=== PATIENT | female | born 1945 | race Caucasian/White ===

== ENCOUNTER → 2019-06-11 12:38 | Outpatient (CLI) | payer MEDICARE, SELFPAY ==
--- NOTE | ~2019-06-11 | MM_ITS ---
EXAMINATION: MM screening kay BI w christy HISTORY: Screening mammogram TECHNIQUE: Craniocaudal and mediolateral oblique 3-D tomosynthesis images were obtained and synthetic 2-D images were generated. CAD analysis was submitted and interpreted. COMPARISON: 06/12/2016, 12/28/2014, 12/26/2013 by lateral digital screening mammogram examinations BREAST PARENCHYMAL COMPOSITION: There are scattered areas of fibroglandular density. FINDINGS: There is no evidence of suspicious mass, calcification, or architectural distortion to sugg est malignancy in either breast. There has been no suspicious interval change. IMPRESSION: 1. No mammographic evidence of malignancy. 2. Recommend routine screening mammography in one year. BI-RADS Category 1: Negative Reviewed, dictated and finalized at location A. IT REPORTER
== END ==
PROVIDERS: PCP Internal Medicine; Visit Provider Internal Medicine
DX: Z12.31 Encounter for screening mammogram for malignant neoplasm of breast (principal)
CPT/HCPCS: 77063; 77067

== ENCOUNTER 2020-06-25 09:11 | Outpatient (CLI) | payer MEDICARE, SELFPAY ==
--- NOTE | ~2020-06-25 | CT_ITS ---
EXAMINATION: CT abdomen pelvis wo/w con EXAM DATE: 06/25/2020 10:09 INDICATION: R31.9 - Hematuria, unspecified. TECHNIQUE: Spiral CT of the abdomen and pelvis was performed without contrast. The patient was then injected with small bolus intravenous Omnipaque 350, followed by delay of approximately 10 minutes to allow collecting system to opacify. A post contrast scan abdomen and pelvis was performed during inj ection of remaining contrast. A total of 130 cc intravenous contrast was administered. The dose-river th product (DLP) for this examination was 782.52 mGy-cm. The exposure was tailored according to marisa ent size (auto mA exposure control), and iterative reconstruction (ASIR) was used as additional dose reduction technique. Comparison is made to prior examination from 12/22/2016. FINDINGS: There is no hydronephrosis or nephrolithiasis. Several renal cysts in each kidney, largest on the right measuring 5 cm. The kidneys enhance symmetrically. There are no suspicious renal lesi ons. The calyces and opacified portions of ureters are unremarkable, without filling defects or foca l suspicious strictures. The bladder is unremarkable. The uterus is not identified and has likely b een surgically resected. No change in the 2 cm left ovarian cystic lesion, benign finding. The liver, spleen, adrenal glands and pancreas are unremarkable. Gallbladder is unremarkable. No bi liary obstruction. There is no retroperitoneal or pelvic lymphadenopathy. There is mild scattered arteriosclerotic disease. The appendix is not positively visualized. There is no pericecal inflammatory change to suggest appe ndicitis. The stomach and small bowel are unremarkable. There is expected amount of colonic stool. No free intraperitoneal gas. The heart is normal in size. There are no pericardial or pleural e ffusions. The lung bases are unremarkable. Sclerotic 1.3 cm focus in L4 unchanged, with thickened t rabeculation. Probably hemangioma. No suspicious bone lesions. IMPRESSION: Renal, ovarian cysts. No suspicious genitourinary findings. Reviewed, dictated and finalized at location A.
[2020-06-25 09:47] LABS: Estimated Glomerular Filt Rate 48
== END 2020-06-25 09:12 | disposition home or self-care (01) ==
PROVIDERS: PCP Internal Medicine; Visit Provider Internal Medicine
DX: R31.9 Hematuria, unspecified (principal); N28.1 Cyst of kidney, acquired
CPT/HCPCS: 74178; Q9967

== ENCOUNTER → 2020-07-19 02:50 | Outpatient (CLI) | payer MEDICARE, SELFPAY ==
[2020-07-19 19:42] LABS: SARS-CoV-2 RNA PCR Negative
== END ==
PROVIDERS: PCP Internal Medicine; Visit Provider Urology
DX: Z01.812 Encounter for preprocedural laboratory examination (principal); Z20.822 Contact with and (suspected) exposure to COVID-19
CPT/HCPCS: C9803; U0003; U0005

== ENCOUNTER 2020-07-20 13:38 | Outpatient (CLI) | payer MEDICARE, SELFPAY ==
--- NOTE | 2020-07-20 13:45 | ECG_ITS ---
Measurements Intervals [place] Rate: 80 P: 27 [place]: 148 QRS: 23 QRSD: 78 T: 36 QT: 346 QTc: 401 Interpretive Statements SINUS RHYTHM BORDERLINE R WAVE PROGRESSION, ANTERIOR LEADS BORDERLINE T WAVE ABNORMALITY- ANT/INF LEADS BASELINE ARTIFACT- I, II, III, AVR, AVL, AVF, V1-V6 BORDERLINE ECG Electronically Signed On 07-20-2020 14:19:59 CDT by Claudy Avendano D.O.
[2020-07-20 14:25] LABS: Hematocrit 38.6 % (37.0-47.0); Hemoglobin 12.2 g/dL (12.0-15.0)
[2020-07-20 14:33] LABS: Anion Gap 3 mmol/L (8-16); Blood Urea Nitrogen 20 mg/dL (7-17); Carbon Dioxide 30 mmol/L (22-30); Chloride 108 mmol/L (98-107); Estimated Glomerular Filt Rate > 60; Glucose 85 mg/dL (65-105); Potassium 4.3 mmol/L (3.4-5.0); Sodium 141 mmol/L (137-145)
[2020-07-20 14:53] LABS: INR 0.9; Prothrombin Time 12.7 Seconds (11.1-14.7)
[2020-07-20 14:54] LABS: Partial Thromboplastin Time 26.3 SECONDS (22.3-36.8)
== END 2020-07-20 13:39 | disposition home or self-care (01) ==
LOC: ANHSURGERY 13:45
PROVIDERS: Anesthesiology; PCP Internal Medicine; Visit Provider Urology
DX: Z01.818 Encounter for other preprocedural examination (principal); N18.30 Chronic kidney disease, stage 3 unspecified; E78.00 Pure hypercholesterolemia, unspecified; D64.9 Anemia, unspecified; Z51.81 Encounter for therapeutic drug level monitoring; Z79.899 Other long term (current) drug therapy
CPT/HCPCS: 36415; 80048; 85014; 85018; 85610; 85730; 93005

== ENCOUNTER → 2020-07-21 12:46 | Outpatient (CLI) | payer MEDICARE, SELFPAY ==
--- NOTE | ~2020-07-21 | MM_ITS ---
EXAMINATION: MM screening kay BI w christy HISTORY: Screening TECHNIQUE: Craniocaudal and mediolateral oblique 3-D tomosynthesis images were obtained and synthetic 2-D images were generated. CAD analysis was submitted and interpreted. COMPARISON: Comparison to multiple prior studies sequentially, with oldest reviewed study dated 11/23. BREAST PARENCHYMAL COMPOSITION: There are scattered areas of fibroglandular density. FINDINGS: There is no evidence of suspicious mass, calcification, or architectural distortion to sugg est malignancy in either breast. There has been no suspicious interval change. IMPRESSION: 1. No mammographic evidence of malignancy. 2. Recommend routine screening mammography in one year. BI-RADS Category 1: Negative Reviewed, dictated and finalized at location A.
== END ==
PROVIDERS: PCP Internal Medicine; Visit Provider Internal Medicine
DX: Z12.31 Encounter for screening mammogram for malignant neoplasm of breast (principal)
CPT/HCPCS: 77063; 77067

== ENCOUNTER 2020-07-22 01:22 | Day surgery (SDC) | payer MEDICARE, SELFPAY ==
[2020-07-16 11:54] VITALS: BMI 27.6
--- NOTE | ~2020-07-22 | XR_ITS ---
EXAMINATION: XR retrograde pyelogram BI EXAM DATE: 07/22/2020 13:49 INDICATION: Bilateral retrograde pyelogram. Hematuria and low abdominal pain. TECHNIQUE: Fluoroscopy used during XR retrograde pyelogram BI performed by Dr. Eleazar Smith MD . Total fluoroscopic time of 24 seconds. The DAP for this procedure was 420 radcm2. A total of 115 images obtained for the exam. Cine run(s) available for review. Correlation was made with CT abdom en pelvis 06/25/2020. FINDINGS: Music Engineer demonstrates cholecystectomy clips. Left ureter was cannulated 1st and injected, was unremarkable. Right ureter was then cannulated and also injected, also unremarkable. No ureteral stri ctures or caliectasis. No filling defects. Correlate with procedure note. IMPRESSION: Unremarkable bilateral retrograde pyelograms. Reviewed, dictated and finalized at location A.
--- NOTE | 2020-07-22 06:58 | WPDHPUPDATE1 ---
History and Physical Update Update Date/Time: 07/22/20 06:58 History and Physical has been reviewed, including an updated exam of the patient. There are NO changes in the patient's condition. Risks, benefits, and alternatives have been discussed and questions answered. Patient agrees to proceed with procedure.
[2020-07-22 12:23] VITALS: BP 107/62; PULSE 81; RESP 16; TEMP 37.1; O2SAT 100
[2020-07-22] MEDS: LACTATED RINGERS 1,000 ML 30 ML IV CONT (12:41)
--- NOTE | 2020-07-22 13:11 | WPDANESEPPF ---
Anes - Initial Pre Proc Eval Procedure: Operation Date: 07/22/20 12:30 Proposed Procedures p Cystoscopy, Bladder Biopsy, Bilateral Retrograde Pyelogram - Eleazar Smith MD Date/Time: 07/22/20 13:11 Surgeon: Eleazar Smith MD Pre Op Diagnosis: gross hematuria Patient Data Age: 74 Gender: F Height: 5 ft Weight: 63.9 kg Last Vital Signs Temp 37.1 C 07/22/20 12:23 Pulse 81 07/22/20 12:23 Resp 16 07/22/20 12:23 BP 107/62 07/22/20 12:23 Pulse Ox 100 07/22/20 12:23 Allergies Allergy/AdvReac Type Severity Reaction Status Date / Time latex Allergy Unknown Hives Verified 07/22/20 11:45 Sulfa (Sulfonamide Allergy Unknown Hives Verified 07/22/20 11:45 Antibiotics) NSAIDS (Non-Steroidal AdvReac Unknown kidney Verified 07/22/20 11:45 Anti-Inflamma Home Medications Medication Instructions Recorded Confirmed Type walker #1 ea 04/07/20 06/03/20 Rx acetaminophen [Tylenol Extra 500 mg PO QID PRN 07/16/20 07/22/20 History Strength] calcium carbonate-vitamin D3 1 tablet PO DAILY 07/16/20 07/22/20 History [Calcium 500 + D (D3)] famotidine 40 mg PO QAM 07/16/20 07/22/20 History levothyroxine 112 mcg PO QAM 07/16/20 07/22/20 History kcebxvlhcobv-Db-hzxj-minerals 1 tablet PO MONTHLY 07/16/20 07/22/20 History [Women's Multiple Vitamins] sertraline 200 mg PO BID 07/16/20 07/22/20 History simvastatin 40 mg PO QAM 07/16/20 07/22/20 History Patient hx anesthesia problems: none Family hx anesthesia problems: none PMFSH Past Medical History Medical History COVID-19 Degenerative joint disease of knee Hypothyroidism (acquired) Impacted cerumen Obstructive sleep apnea Presbycusis Unsteady gait when walking Surgical History Surgical History History of total right knee replacement Status post total right knee replacement Family History Family History Mother Family history of diabetes mellitus in first degree relative Family history of coronary artery disease Diabetes mellitus Father Family history of lung cancer Other Asthma Family history of cardiovascular disease Family history of gastrointestinal disorder Family history of thyroid disease Social History Social History Smoking status: Never smoker Second hand tobacco smoke exposure: No Alcohol intake: current Drinks per week: 2 Substance use: never Substance use type: does not use Living arrangements: alone Spiritual care concerns: No Anes - Eval Final PreProcedure Day of Procedure 07/22/20 13:11 Patient weight: overweight Heart: regular rate and rhythm Lungs: clear to auscultation Airway: Mallampati scale class II Neurological: alert and oriented Last oral intake: >/= 8 hours ASA classification: III Emergent: no Anesthetic plan: proceed Anesthesia type and monitoring: general GIVS and standard monitoring Informed Consent: The patient's anesthetic plan and its attendant risks and benefits were discussed with the patient/family/POA. Questions were solicited and answers provided to the satisfaction of the patient/family/POA.
[2020-07-22] MEDS: ceFAZolin 2 GM/D5W 50 ML 2 GM/50 ML BAG IVPB (13:26)
[2020-07-22] MEDS: LIDOCAINE HCL 2% GEL UROJET 10 ML PKG MUCOUS MEM (13:53)
[2020-07-22 13:58] VITALS: BP 123/67; PULSE 81; RESP 16; O2SAT 100
--- NOTE | 2020-07-22 13:59 | PM.PROC ---
Procedure Note - Detailed Date of procedure: 07/22/20 Pre-op diagnosis: gross hematuria Post-op diagnosis: same Procedure performed: 1. Cystoscopy with bilateral retrograde pyelogram 2. Bladder biopsy Description of procedure: patient is brought to the op suite where she was prepped and draped in routine sterile fashion while in a dorsal lithotomy position. 2% xylocaine jelly was introduced introduced through early and systemic sedation is administered per the anesthesia department. Cystoscopy is undertaken with the 21 F rigid cystoscope. Bladder neck and urethra her endoscopically normal. Urine was collected for cytology. Bladder mucosa is notable only for 1 subtle area of slight hyperemia directly in the midline at the dome of her bladder. The remainder of the mucosa was without hyperemia or other abnormalities. She has a single ureteral orifice bilaterally. A 8 F bulb tip catheter was used to obtain bilateral retrograde pyelograms which showed no evidence of obstruction filling defects or other identifiable pathology. Using the cold cup forceps the or of hyperemia in the dome was biopsied and the bases cauterized with a Bugbee electrode. Cystoscope was removed. The patient tolerated the procedure well was taken recovery room good condition per ease ending on Sona wilde think Anesthesia: MAC Surgeon: Eleazar Smith MD Estimated blood loss (mL): 0 Drains: No Packing: No Pathology: yes (bladder biopsy) Complications: No immediate complications Condition: stable Disposition: PACU
[2020-07-22 14:28] VITALS: BP 152/76; PULSE 76; RESP 16
[2020-07-22 15:08] VITALS: BP 156/84; PULSE 72; RESP 16
== END 2020-07-22 15:10 | disposition home or self-care (01) ==
PROVIDERS: PCP Internal Medicine; Visit Provider Urology
PROC: (CPT 52352; principal; 2020-07-22 12:30)
DX: N30.21 Other chronic cystitis with hematuria (principal); E03.9 Hypothyroidism, unspecified; G47.33 Obstructive sleep apnea (adult) (pediatric); Z86.16 Personal history of COVID-19
CPT/HCPCS: 52204; 36415; 74420; 80048; 85014; 85018; 85610; 85730; 88108; 88305; 93005; A9270; C1758; C1769; C9803; J0690; J2704; J3010; J7120; Q9966; U0003; U0005

== ENCOUNTER → 2020-12-30 01:52 | Outpatient (CLI) | payer MEDICARE, SELFPAY ==
[2020-12-30 17:06] LABS: SARS-CoV-2 RNA PCR Negative
== END ==
PROVIDERS: PCP Family Medicine; Visit Provider Family Medicine
DX: Z20.822 Contact with and (suspected) exposure to COVID-19 (principal)
CPT/HCPCS: C9803; U0003; U0005

== ENCOUNTER 2021-04-05 00:22 | Day surgery (SDC) | payer MEDICARE, SELFPAY ==
[2021-03-22 14:48] VITALS: BMI 26.5
[2021-04-05 09:06] VITALS: BP 139/103; PULSE 94; RESP 18; TEMP 36.3; O2SAT 98; BMI 24.8
--- NOTE | 2021-04-05 09:23 | WPDANESEPPF ---
Anes - Initial Pre Proc Eval Procedure: Operation Date: 04/05/21 10:15 Proposed Procedures p Colonoscopy - Rigoberto Brady MD Date/Time: 04/05/21 09:23 Surgeon: Rigoberto Brady MD Pre Op Diagnosis: blood in stool Patient Data Age: 75 Gender: F Height: 1.55 m Weight: 59.6 kg Last Vital Signs Temp 36.3 C L 04/05/21 09:06 Pulse 94 04/05/21 09:06 Resp 18 04/05/21 09:06 BP 139/103 H 04/05/21 09:06 Pulse Ox 98 04/05/21 09:06 Allergies Allergy/AdvReac Type Severity Reaction Status Date / Time latex Allergy Unknown Hives Verified 03/22/21 14:45 Sulfa (Sulfonamide Allergy Unknown Hives Verified 03/22/21 14:45 Antibiotics) NSAIDS (Non-Steroidal AdvReac Unknown kidney Verified 03/22/21 14:45 Anti-Inflamma Home Medications Medication Instructions Recorded Confirmed Type acetaminophen [Tylenol Extra 500 mg PO QID PRN 07/16/20 03/22/21 History Strength] calcium carbonate-vitamin D3 1 tablet PO DAILY 07/16/20 03/22/21 History skrvrkupfmnf-Kn-ovwt-minerals 1 tablet PO MONTHLY 07/16/20 03/22/21 History famotidine 40 mg tablet 40 mg PO QAM #90 tablet 08/31/20 03/22/21 Rx levothyroxine 112 mcg tablet 112 mcg PO QAM #90 tablet 08/31/20 03/22/21 Rx simvastatin 40 mg tablet 40 mg PO QHS #90 tablet 08/31/20 03/22/21 Rx lisinopril 10 mg tablet 10 mg PO DAILY 09/27/20 03/22/21 History sertraline 100 mg tablet See Rx Instructions .ROUTE 03/24/21 Rx .COMPLEX #180 tablet Patient hx anesthesia problems: none Family hx anesthesia problems: none Results Review: All pre-operative results and documents have been reviewed as part of the pre-operative evaluation. [facility] Past Medical History Medical History Arthritis COVID-19 Degenerative joint disease of knee Hypothyroidism (acquired) Impacted cerumen Kidney disease Obstructive sleep apnea Osteoporosis Presbycusis Unsteady gait when walking Surgical History Surgical History Cochlear implant in place H/O cystoscopy History of partial hysterectomy History of total right knee replacement History of unilateral oophorectomy Status post total right knee replacement Family History Family History Mother Family history of diabetes mellitus in first degree relative Family history of coronary artery disease Diabetes mellitus Asthma Father Family history of lung cancer Sibling Diabetes mellitus Other Family history of cardiovascular disease Family history of gastrointestinal disorder Family history of thyroid disease Social History Social History Smoking status: Never smoker Second hand tobacco smoke exposure: Yes Alcohol intake: current Drinks per week: 1 Alcohol use details: wine cooler Substance use: never Substance use type: does not use Living arrangements: assisted living Gender identity (if verbalized by the patient): Female Spiritual care concerns: No Agree to blood products: Yes Anes - Eval Final PreProcedure Day of Procedure 04/05/21 09:23 Patient weight: normal Heart: regular rate and rhythm Lungs: clear to auscultation Airway: Mallampati scale class II Neurological: alert and oriented Last oral intake: >/= 8 hours ASA classification: III Emergent: no Anesthetic plan: proceed Anesthesia type and monitoring: general GIVS and standard monitoring Results Review: All pre-operative results and documents have been reviewed as part of the pre-operative evaluation. Informed Consent: The patient's anesthetic plan and its attendant risks and benefits were discussed with the patient/family/POA. Questions were solicited and answers provided to the satisfaction of the patient/family/POA.
--- NOTE | 2021-04-05 09:32 | WPDGICN ---
Assessment and Plan Assessment and plan (1) BRBPR (bright red blood per rectum): Code(s): K62.5 - Hemorrhage of anus and rectum Status: Acute Assessment and Plan: Patient has intermittent rectal bleeding. Attributed to a hemorrhoid. Plan is for colonoscopy to exclude any other organic disease. High-fiber diet advised. Further recommendations will be given after colonoscopy. (2) History of colon polyps: Code(s): Z86.010 - Personal history of colonic polyps Status: Acute Assessment and Plan: Patient has a prior history of colon polyps. Most recently 2016. Surveillance colonoscopy will be performed to evaluate for additional polyp formation at this time. GI Consult Note Consult date/time: 04/05/21 09:32 HPI: Sona Joshua is a 75 year old female Presents for screening colonoscopy. Patient was found to have colon polyps in 2017. She presents today for follow-up colonoscopy. Additionally patient notices intermittent bright red blood per rectum. Often will find blood in her underwear. She denies any abdominal or rectal pain. She is referred to evaluate this with colonoscopy. Family history is noncontributory. Review of Systems Review of Systems: All systems reviewed & are unremarkable except as noted in HPI and below PMFSH Past Medical History Medical History Arthritis COVID-19 Degenerative joint disease of knee Hypothyroidism (acquired) Impacted cerumen Kidney disease Obstructive sleep apnea Osteoporosis Presbycusis Unsteady gait when walking Surgical History Surgical History Cochlear implant in place H/O cystoscopy History of partial hysterectomy History of total right knee replacement History of unilateral oophorectomy Status post total right knee replacement Family History Family History Mother Family history of diabetes mellitus in first degree relative Family history of coronary artery disease Diabetes mellitus Asthma Father Family history of lung cancer Sibling Diabetes mellitus Other Family history of cardiovascular disease Family history of gastrointestinal disorder Family history of thyroid disease Social History Social History Smoking status: Never smoker Second hand tobacco smoke exposure: Yes Alcohol intake: current Drinks per week: 1 Alcohol use details: wine cooler Substance use: never Substance use type: does not use Living arrangements: assisted living Gender identity (if verbalized by the patient): Female Spiritual care concerns: No Agree to blood products: Yes Meds Home Medications and Allergies Home Medications Medication Instructions Recorded Confirmed Type acetaminophen [Tylenol Extra 500 mg PO QID PRN 07/16/20 03/22/21 History Strength] calcium carbonate-vitamin D3 1 tablet PO DAILY 07/16/20 03/22/21 History gwlrfuudvezu-Wm-udfh-minerals 1 tablet PO MONTHLY 07/16/20 03/22/21 History famotidine 40 mg tablet 40 mg PO QAM #90 tablet 08/31/20 03/22/21 Rx levothyroxine 112 mcg tablet 112 mcg PO QAM #90 tablet 08/31/20 03/22/21 Rx simvastatin 40 mg tablet 40 mg PO QHS #90 tablet 08/31/20 03/22/21 Rx lisinopril 10 mg tablet 10 mg PO DAILY 09/27/20 03/22/21 History sertraline 100 mg tablet See Rx Instructions .ROUTE 03/24/21 Rx .COMPLEX #180 tablet Allergies Allergy/AdvReac Type Severity Reaction Status Date / Time latex Allergy Unknown Hives Verified 03/22/21 14:45 Sulfa (Sulfonamide Allergy Unknown Hives Verified 03/22/21 14:45 Antibiotics) NSAIDS (Non-Steroidal AdvReac Unknown kidney Verified 03/22/21 14:45 Anti-Inflamma Vital Signs Vital Signs - 24 hr 04/05/21 09:06 Temperature 97.3 F L Pulse Rate 94 Respiratory Rate 18 Blood Pressure 139/103 H Pulse
[2021-04-05] MEDS: LACTATED RINGERS 1,000 ML 150 ML IV CONT (09:39)
--- NOTE | 2021-04-05 10:17 | SUR.PREOP ---
PATIENT TOOK THE MAGNESIUM CITRATE AT [address] WHITE AND DR ORTIZ NOTIFIED. NO FURTHER INSTRUCTION WAS GIVEN.
[2021-04-05 10:35] VITALS: BP 83/52; PULSE 72; RESP 18; O2SAT 99
[2021-04-05 10:45] VITALS: BP 105/52; PULSE 74; RESP 20; O2SAT 99
[2021-04-05 10:55] VITALS: BP 127/77; PULSE 74; RESP 20; O2SAT 100
== END 2021-04-05 11:16 | disposition home or self-care (01) ==
PROVIDERS: PCP Family Medicine; Visit Provider Internal Medicine Gastroenterology
PROC: 0DJD8ZZ Inspection of Lower Intestinal Tract, Via Natural or Artificial Opening Endoscopic (ICD-10-PCS; CPT 45378; principal; 2021-04-05 10:15)
DX: Z12.11 Encounter for screening for malignant neoplasm of colon (principal); K62.5 Hemorrhage of anus and rectum; K64.8 Other hemorrhoids; D12.4 Benign neoplasm of descending colon; G47.33 Obstructive sleep apnea (adult) (pediatric); E03.9 Hypothyroidism, unspecified; M81.0 Age-related osteoporosis without current pathological fracture
CPT/HCPCS: 45380; 88305; J2704; J7120

== ENCOUNTER → 2022-04-07 13:33 | Outpatient (CLI) | payer MEDICARE, SELFPAY ==
--- NOTE | ~2022-04-07 | US_ITS ---
EXAMINATION: US renal BI DATE: 04/07/2022 14:06 INDICATION: Stage IIIa chronic kidney disease. TECHNIQUE: Multiple ultrasound grayscale images of the kidneys were obtained. COMPARISON: CT abdomen and pelvis 06/25/2020 FINDINGS: The right kidney measures 9.6 x 5.3 x 5.8 cm. The left kidney measures 10.3 x 4.4 x 5.0 cm. The kidne ys demonstrate normal parenchymal echogenicity. There are cysts in the kidneys measuring up to 4.3 cm on the right. There is no hydronephrosis. The bladder is normal. IMPRESSION: 1. Normal kidney sizes. No hydronephrosis. Reviewed, dictated and finalized at location A. RATION DIVER
== END ==
PROVIDERS: PCP Family Medicine; Visit Provider Internal Medicine Nephrology
DX: I12.9 Hypertensive chronic kidney disease with stage 1 through stage 4 chronic kidney disease, or unspecified chronic kidney disease (principal); N18.31 Chronic kidney disease, stage 3a; E78.5 Hyperlipidemia, unspecified; R53.83 Other fatigue
CPT/HCPCS: 76775

== ENCOUNTER 2022-10-12 14:08 | Outpatient (CLI) | payer MEDICARE, SELFPAY ==
--- NOTE | ~2022-10-12 | US_ITS ---
EXAMINATION: US arterial ankle brachial ind DATE: 10/12/2022 14:51 INDICATION: Peripheral vascular disease, unspecified. TECHNIQUE: Segmental pressures and plethysmographic and Doppler waveforms of the brachial and lower e xtremity arteries were obtained. COMPARISON: None. FINDINGS: Right and left brachial artery pressures of 115 mm Hg and 119 mm Hg, respectively, are concordant (no rmal difference <= 30 mmHg). The right ankle-brachial index (CAMERON) is 0.71 (normal >= 0.9-1.0). The right great toe-brachial index (TBI) is 0.26 (normal >= 0.65). Arterial Doppler waveforms are biphasic at the ankle. The left CAMERON is 1.04. The left TBI is 0.48. Arterial Doppler waveforms are biphasic at the ankle. IMPRESSION: 1. Moderately decreased right CAMERON, normal left CAMERON, and decreased bilateral TBIs, consistent with art erial occlusive disease. Reviewed, dictated and finalized at location A. IMPRESSION: 1. Moderately decreased right CAMERON, normal left CAMERON, and decreased bilateral TBI s, consistent with arterial occlusive disease.
== END 2022-10-12 14:09 | disposition home or self-care (01) ==
PROVIDERS: PCP Physician Assistant Medical; Visit Provider Physician Assistant Medical
DX: I73.9 Peripheral vascular disease, unspecified (principal)
CPT/HCPCS: 93922

== ENCOUNTER → 2023-02-05 12:07 | Outpatient (CLI) | payer MEDICARE, SELFPAY ==
--- NOTE | ~2023-02-05 | MM_ITS ---
EXAMINATION: MM screening [facility] BI w christy HISTORY: Screening mammogram TECHNIQUE: Craniocaudal and mediolateral oblique 3-D tomosynthesis images were obtained and synthetic 2-D images were generated. CAD analysis was submitted and interpreted. COMPARISON: 07/21/2020, 06/11/2019, 06/12/2016 BREAST PARENCHYMAL COMPOSITION: There are scattered areas of fibroglandular density. FINDINGS: No suspicious mass, calcification, or architectural distortion are identified in either jerzy ast to suggest malignancy. There has been no suspicious interval change. IMPRESSION: 1. No mammographic evidence of malignancy. 2. Recommend routine screening mammography in one year. BI-RADS Category 1: Negative Reviewed, dictated and finalized at location A.
== END ==
PROVIDERS: PCP Physician Assistant Medical; Visit Provider Physician Assistant Medical
DX: Z12.31 Encounter for screening mammogram for malignant neoplasm of breast (principal)
CPT/HCPCS: 77063; 77067

== ENCOUNTER 2023-07-10 08:14 | Outpatient (CLI) | payer MEDICARE, SELFPAY ==
--- NOTE | ~2023-07-10 | CT_ITS ---
CT of the Abdomen and Pelvis: Indication: Nausea and vomiting Technique: 2.5 mm axial scans were obtained through the abdomen and pelvis following intravenous adm inistration of 100 cc of Omnipaque 350. Dose reduction technique was used on this scan by utilizing a utomated exposure control and iterative reconstruction technique. The dose-length product (DLP) was 2 34.01 mGy-cm. Findings: Scans through the lung bases are unremarkable. The liver, pancreas, adrenals and kidneys are within normal limits. Borderline splenomegaly noted. Ch olecystectomy clips are present. There are atherosclerotic calcifications of the aorta. No lymphaden opathy. No bowel obstruction or bowel wall thickening. There is no evidence to suggest acute appendicitis. Images through the pelvis were performed. Urinary bladder unremarkable. No pelvic mass seen. No ascit es. Impression: No acute abnormality seen. Borderline splenomegaly. Reviewed, dictated and finalized at [facility]. Impression: No acute abnormality seen. Borderline splenomegaly.
== END 2023-07-10 08:15 | disposition home or self-care (01) ==
PROVIDERS: PCP Family Medicine; Visit Provider Physician Assistant Medical
DX: R11.2 Nausea with vomiting, unspecified (principal); K85.90 Acute pancreatitis without necrosis or infection, unspecified
CPT/HCPCS: 74177; Q9967

== ENCOUNTER 2023-09-08 09:14 | Outpatient (CLI) | payer MEDICARE, SELFPAY ==
--- NOTE | ~2023-09-08 | US_ITS ---
EXAMINATION: US abdomen limited DATE: 09/08/2023 09:52 INDICATION: Right upper quadrant abdominal pain. TECHNIQUE: Multiple grayscale and Doppler ultrasound images of the abdomen were obtained. COMPARISON: CT abdomen and pelvis 07/10/2023 FINDINGS: The visualized portions of the head, body, and tail of the pancreas are normal. The liver i s normal without focal lesion. There is normal flow in main portal vein. The gallbladder is absent. T he common duct is normal and measures 5 mm. IMPRESSION: 1. Normal right upper quadrant ultrasound status post cholecystectomy. Reviewed, dictated and finalized at location E.
== END 2023-09-08 09:15 | disposition home or self-care (01) ==
PROVIDERS: PCP Family Medicine; Visit Provider Nurse Practitioner
DX: R10.11 Right upper quadrant pain (principal); Z90.49 Acquired absence of other specified parts of digestive tract
CPT/HCPCS: 76705

== ENCOUNTER 2023-09-21 00:49 | Day surgery (SDC) | payer MEDICARE, SELFPAY ==
[2023-09-12 09:05] VITALS: BMI 25.0
[2023-09-21 12:43] VITALS: BP 145/78; PULSE 97; RESP 18; TEMP 36.6; O2SAT 100
[2023-09-21] MEDS: LACTATED RINGERS 1,000 ML 150 ML IV CONT (12:51)
--- NOTE | 2023-09-21 12:55 | WPDANESEPPF ---
Anes - Initial Pre Proc Eval Procedure: Operation Date: 09/21/23 14:00 Proposed Procedures p Esophagogastroduodenoscopy - Eladio Stern MD Date/Time: 09/21/23 12:55 Surgeon: Eladio Stern MD Pre Op Diagnosis: RUQ Pain, N&V Patient Data Age: 77 Gender: F Height: 1.52 m Weight: 55.7 kg Last Vital Signs Temp 97.8 F 09/21/23 12:43 Pulse 97 09/21/23 12:43 Resp 18 09/21/23 12:43 BP 145/78 H 09/21/23 12:43 Pulse Ox 100 09/21/23 12:43 O2 Del Method Room Air 09/21/23 12:43 Allergies Allergy/AdvReac Type Severity Reaction Status Date / Time latex Allergy Unknown Hives Verified 09/21/23 12:42 Sulfa (Sulfonamide Allergy Unknown Hives Verified 09/21/23 12:42 Antibiotics) NSAIDS (Non-Steroidal AdvReac Unknown kidney Verified 09/21/23 12:42 Anti-Inflamma Home Medications Medication Instructions Recorded Confirmed Type acetaminophen 500 mg tablet 1,000 mg PO BID PRN Pain 07/16/20 09/12/23 History (Tylenol Extra Strength) aspirin 325 mg tablet 325 mg PO DAILY 12/21/22 09/12/23 History alendronate 70 mg tablet See Rx Instructions .Route 02/07/23 09/12/23 Rx .COMPLEX #12 tabs lisinopril 10 mg tablet See Rx Instructions .Route 05/31/23 09/12/23 Rx .COMPLEX #90 tabs famotidine 20 mg tablet 20 mg PO DAILY #14 tabs 06/21/23 09/12/23 Rx ondansetron 4 mg disintegrating 4 mg PO Q8H PRN nausea and 06/21/23 09/12/23 Rx tablet vomiting #20 tabs simvastatin 40 mg tablet See Rx Instructions .Route 07/02/23 09/12/23 Rx .COMPLEX #90 tabs dapagliflozin propanediol 5 mg See Rx Instructions .Route 07/04/23 09/12/23 Rx tablet (Farxiga) .COMPLEX #90 tabs tramadol 50 mg tablet 50 mg PO Q6H PRN pain #20 tabs 07/23/23 09/12/23 Rx sertraline 100 mg tablet See Rx Instructions .Route 08/13/23 09/12/23 Rx .COMPLEX #180 tabs omeprazole 40 mg capsule,delayed 40 mg PO BID 90 days #180 caps 08/16/23 09/12/23 Rx release levothyroxine 112 mcg tablet See Rx Instructions .Route 09/07/23 09/12/23 Rx .COMPLEX #90 tabs multivitamin 1 tablet PO DAILY 09/12/23 09/12/23 History Patient hx anesthesia problems: none Family hx anesthesia problems: none Results Review: All pre-operative results and documents have been reviewed as part of the pre-operative evaluation. [facility] Past Medical History Medical History Acute otitis externa Acute otitis media Age-related osteoporosis with current pathological fracture of femur Arthritis BRBPR (bright red blood per rectum) Cataract Chronic cystitis Chronic kidney disease, stage 3b Degenerative disc disease, cervical Degenerative joint disease of knee Right Hemorrhoid Hiatal hernia with GERD without esophagitis History of colon polyps Hypertensive chronic kidney disease with stage 1 through stage 4 chronic kidney disease, or unspecified chronic kidney disease Hypothyroidism (acquired) Kidney disease Lesion of face Obstructive sleep apnea Did tolerate CPAP, sleep study 12/24/2018-moderate CAROL ANN with severe desaturation. Elevated limb movement index. Osteoarthritis cervical spine Osteopenia of femoral neck, bilateral Osteoporosis Presbycusis Right ankle pain Unsteady gait when walking Surgical History Surgical History Cochlear implant in place H/O cystoscopy History of partial hysterectomy History of total right knee replacement History of unilateral oophorectomy Status post total right knee replacement Family History Family History Mother Family history of diabetes mellitus in first degree relative Family history of coronary artery disease Diabetes mellitus Asthma Father Family history of lung cancer Sibling Diabetes mellitus Crohn's colitis Other Family history of cardiovascular disease Family history of gastrointestinal disorder
--- NOTE | 2023-09-21 13:30 | PM.HPGS ---
History of Present Illness History of Present Illness Consent: Risks, benefits, and alternatives have been discussed and questions answered. Patient agrees to proceed with procedure. Chief complaint: RUQ Pain, N&V Narrative: Sona Joshua is a 77 year old female with post prandial nausea, CT scan and ultrasound unremarkable, she has been on omeprazole for years. Review of Systems Review of Systems: All systems reviewed & are unremarkable except as noted in HPI and below PMFSH Past Medical History Medical History Acute otitis externa Acute otitis media Age-related osteoporosis with current pathological fracture of femur Arthritis BRBPR (bright red blood per rectum) Cataract Chronic cystitis Chronic kidney disease, stage 3b Degenerative disc disease, cervical Degenerative joint disease of knee Right Hemorrhoid Hiatal hernia with GERD without esophagitis History of colon polyps Hypertensive chronic kidney disease with stage 1 through stage 4 chronic kidney disease, or unspecified chronic kidney disease Hypothyroidism (acquired) Kidney disease Lesion of face Obstructive sleep apnea Did tolerate CPAP, sleep study 12/24/2018-moderate CAROL ANN with severe desaturation. Elevated limb movement index. Osteoarthritis cervical spine Osteopenia of femoral neck, bilateral Osteoporosis Presbycusis Right ankle pain Unsteady gait when walking Surgical History Surgical History Cochlear implant in place H/O cystoscopy History of partial hysterectomy History of total right knee replacement History of unilateral oophorectomy Status post total right knee replacement Family History Family History Mother Family history of diabetes mellitus in first degree relative Family history of coronary artery disease Diabetes mellitus Asthma Father Family history of lung cancer Sibling Diabetes mellitus Crohn's colitis Other Family history of cardiovascular disease Family history of gastrointestinal disorder Family history of thyroid disease Social History Social History Smoking status: Never smoker Second hand tobacco smoke exposure: Yes Alcohol intake: current Drinks per week: 1 Alcohol use details: wine cooler Substance use: never Substance use type: does not use Lack of Transportation: No Lack of Food: Never True Current Housing: I Have Housing Concerned About Future Housing: No Difficulty Paying Gas/Electric Bills: No Difficulty Paying for Meds: No Currently Unemployed: No Difficulty w/ Childcare or Family Care: No Living arrangements: with family Occupation/Education: retired Gender identity (if verbalized by the patient): Female Sexual Orientation (if Verbalized by the Patient): Straight or Heterosexual Spiritual care concerns: No Agree to blood products: Yes Meds Home Medications and Allergies Home Medications Medication Instructions Recorded Confirmed Type acetaminophen 500 mg tablet 1,000 mg PO BID PRN Pain 07/16/20 09/12/23 History (Tylenol Extra Strength) aspirin 325 mg tablet 325 mg PO DAILY 12/21/22 09/12/23 History alendronate 70 mg tablet See Rx Instructions .Route 02/07/23 09/12/23 Rx .COMPLEX #12 tabs lisinopril 10 mg tablet See Rx Instructions .Route 05/31/23 09/12/23 Rx .COMPLEX #90 tabs famotidine 20 mg tablet 20 mg PO DAILY #14 tabs 06/21/23 09/12/23 Rx ondansetron 4 mg disintegrating 4 mg PO Q8H PRN nausea and 06/21/23 09/12/23 Rx tablet vomiting #20 tabs simvastatin 40 mg tablet See Rx Instructions .Route 07/02/23 09/12/23 Rx .COMPLEX #90 tabs dapagliflozin propanediol 5 mg See Rx Instructions .Route 07/04/23 09/12/23 Rx tablet (Farxiga) .COMPLEX #90 tabs tramadol 50 mg tablet 50 mg PO Q6H PRN pain #20 tabs 04/
[2023-09-21 13:42] VITALS: BP 115/76; PULSE 81; RESP 19; O2SAT 99
[2023-09-21 13:52] VITALS: BP 115/76; PULSE 71; RESP 20; O2SAT 98
[2023-09-21 14:02] VITALS: BP 137/74; PULSE 84; RESP 22; O2SAT 100
== END 2023-09-21 14:11 | disposition home or self-care (01) ==
PROVIDERS: PCP Family Medicine; Referring Provider Nurse Practitioner; Visit Provider Internal Medicine Gastroenterology
PROC: 0DJ08ZZ Inspection of Upper Intestinal Tract, Via Natural or Artificial Opening Endoscopic (ICD-10-PCS; CPT 43235; principal; 2023-09-21 14:00)
DX: R10.11 Right upper quadrant pain (principal); R11.2 Nausea with vomiting, unspecified; K21.9 Gastro-esophageal reflux disease without esophagitis; K44.9 Diaphragmatic hernia without obstruction or gangrene; N18.32 Chronic kidney disease, stage 3b; E03.9 Hypothyroidism, unspecified; G47.33 Obstructive sleep apnea (adult) (pediatric); Z99.89 Dependence on other enabling machines and devices; Z96.651 Presence of right artificial knee joint
CPT/HCPCS: 43239; 88305; J2704; J7120

== ENCOUNTER 2024-05-14 09:09 | Outpatient (CLI) | payer MEDICARE, SELFPAY ==
--- NOTE | ~2024-05-14 | XR_ITS ---
Left Knee Technique: AP, lateral, and sunrise views were obtained. Clinical History: Pain Findings: No fracture or dislocation is seen. Osseous alignment is anatomic. Joint spaces are preserv ed without degenerative or erosive change. Soft tissues are unremarkable. No joint effusion is seen. Impression: Unremarkable left knee radiographs. Reviewed, dictated and finalized at location . [employer] Impression: Unremarkable left knee radiographs.
== END 2024-05-14 09:10 | disposition home or self-care (01) ==
LOC: GOSHIMG 09:09
PROVIDERS: PCP Family Medicine; Visit Provider Family Medicine
DX: M25.562 Pain in left knee (principal); G89.29 Other chronic pain
CPT/HCPCS: 73564

== ENCOUNTER 2024-08-15 11:36 | Outpatient (CLI) | payer MEDICARE, SELFPAY ==
--- OUTSIDE RECORDS SUMMARY | 2024-08-15 11:40 | XMS_ITS | Clinical Summary ---
Author Organization [facility] Address [address] [place] [address] Care Team Providers Care High School Sports Coach Name Role Phone Kecia Rader DO Primary Care Provider [phone] Allergies Active Allergy Reactions Criticality Noted Date Comments Latex Rash Low 09/07/2020 Sulfa Antibiotics Rash Low 09/03/2021 Medications FARXIGA 5 MG Tab 2 Active omeprazole (PRILOSEC) 40 MG capsule 4 Active simvastatin (ZOCOR) 40 MG tablet Take 1 tablet (40 mg total) by mouth daily. Active traMADol (ULTRAM) 50 MG tabletIndications :Chronic Pain Take 1 tablet (50 mg total) by mouth 2 (two) times daily as needed for Pain. Indications: Chronic Pain 30 tablet 4 Active losartan (COZAAR) 50 MG tabletIndications :Essential hypertension Take 1 tablet (50 mg total) by mouth every morning. 90 tablet 3 4 Active aspirin 325 MG tablet Take 1 tablet (325 mg total) by mouth daily. Active multi vitamin/minerals (THERA-M ENHANCED) tablet Take 1 tablet by mouth daily. Active Acetaminophen (TYLENOL) 325 MG Cap 2 bid Active escitalopram (LEXAPRO) 10 MG tablet Take 1 tablet (10 mg total) by mouth daily. 4 Active levothyroxine (SYNTHROID) 100 MCG tabletIndications :Hypothyroidism, unspecified type TAKE 1 TABLET EVERY MORNING 30 tablet 5 Active Active Problems Problem Noted Date Diagnosed Date Peripheral vascular disease 11/22/2022 Benign paroxysmal positional vertigo of right ea r 07/19/2020 Sensorineural hearing loss, bilateral 05/23/2019 Other fatigue 03/24/2015 Stage 3 chronic kidney disease 10/26/2011 Encounters Date Type Department Care Team Description 05/23/2024 7:35 PM SOCIAL SCIENCES RESEARCH SCIENTIST - 05/23/2024 9:16 PM SOCIAL SCIENCES RESEARCH SCIENTIST Emergency [facility] Emergency Room [address] [place] [address] Alvaro Warren MD Fall Discharge Disposition: Home or Self Care (Routine Discharge) 05/23/2024 Travel from Last 3 Months Immunizations Immunization Administration Dates Next Due Flucelvax 2 YRS+ (Multi-Dose Vial) 01/22/2019 Fluzone High Dose - >Age 65 (Prefilled Syringe) 12/18/2022 Hepatitis B Vac Recomb Adj 20 Mcg/0.5ml Im Sosy 01/22/2019 Influenza (Generic) 12/22/2021 Pneumococcal (Pneumovax 23) 11/04/2019 Pneumococcal (Prevnar 13) 12/29/2014 Pneumococcal (Prevnar 7) 12/08/2009 Shingrix 03/19/2020,01/14/2020 Social History Tobacco Use Types Packs/Day Years Used Date Smoking Tobacco: Former Cigarettes Passive Smoke Exposure: Past Smokeless Tobacco: Never Tobacco Cessation:Counseling Given: No Passive Exposure Comments:cigarette smoker Alcohol Use Standard Drinks/Week Comments Not Currently 0 (1 standard drink = 0.6 oz pur e alcohol) PHQ-2 Answer Date Recorded Patient Health Questionnaire-2 Score 2 11/26/2023 Comments No Sex and Gender Information Value Date Recorded Sex Assigned at Female 05/23/2024 7:46 PM SOCIAL SCIENCES RESEARCH SCIENTIST Legal Sex Female 6:09 PM CDT Gender Identity Female 05/23/2024 7:47 PM SOCIAL SCIENCES RESEARCH SCIENTIST Sexual Orientation Straight 05/23/2024 7: 47 PM SOCIAL SCIENCES RESEARCH SCIENTIST Last Filed Vital Signs Vital Sign Reading Time Taken Comments Blood Pressure 134/97 05/23/2024 9:14 PM SOCIAL SCIENCES RESEARCH SCIENTIST Pulse 80 05/23/2024 9:14 PM SOCIAL SCIENCES RESEARCH SCIENTIST Temperature 36.3 C (97.4 F) 05/23/2024 9:14 PM SOCIAL SCIENCES RESEARCH SCIENTIST Respiratory Rate 18 05/23/2024 9:14 PM SOCIAL SCIENCES RESEARCH SCIENTIST Oxygen Saturation 96% 05/23/2024 9:14 PM SOCIAL SCIENCES RESEARCH SCIENTIST Inhaled Oxygen Concentration - - Weight 55.3 kg (122 lb) 05/23/2024 7:40 PM SOCIAL SCIENCES RESEARCH SCIENTIST Height 149.9 cm (4' 11 ) 05/23/2024 7:40 PM SOCIAL SCIENCES RESEARCH SCIENTIST Body Mass Index 24.64 05/23/2024 7:40 PM SOCIAL SCIENCES RESEARCH SCIENTIST Plan of Treatment Health Maintenance Due Date Last Done Comments ASCVD LDL 1945 DTaP, Tdap and Td Vaccines (1 - Tdap) 11/15/1962 Annual Medicare Wellness Visit 11/15/2008 COVID-19 Vaccine (5 - season) 2023 12/30/2021, 01/25/2021, 06/27/2020, Additional history exists PHQ-2 (Physician [place]) 04/09/2024 11/26/2023 Pneumococcal Vaccine: 50+ Years Completed 11/04/2019, 12/29/2014, 12/08/2009 Zoster Vaccines Completed 03/19/2020, 01/14/2020 Dexa Scan (General) Completed 03/08/2023, RSV Immunization or 60+ Years Completed 12/16/2023 Meningococcal B Vaccine Aged Out No l onger eligible based on patient's age to complete this topic Meningococcal Vaccine Aged Out No giuliana samantha eligible based on patient's age to complete this topic RSV Immunizations Under 20 Months Aged Out No longer eligible based on patient's age to complete this topic Procedures Procedure Name Priority Date/Time Associated Diagnosis Comments CT CERV SPINE WO CON STAT 05/23/2024 8:19 PM SOCIAL SCIENCES RESEARCH SCIENTIST CT HEAD WO CON STAT 05/23/2024 8:19 PM SOCIAL SCIENCES RESEARCH SCIENTIST XR KNEE LT 3V STAT 05/23/2024 8:19 PM SOCIAL SCIENCES RESEARCH SCIENTIST BONE DENSITY/DEXA Routine 03/08/2023 3:0 3 PM SOCIAL SCIENCES RESEARCH SCIENTIST Other primary ovarian failure from Last 3 Months or Most Recently Relevant to Health Maintenance Results * CT HEAD WO CON (05/23/2024 8:19 PM SOCIAL SCIENCES RESEARCH SCIENTIST) Anatomical Region Laterality Modality Head Computed Tomogra phy 05/23/2024 8:36 PM SOCIAL SCIENCES RESEARCH SCIENTIST Impressions 05/23/2024 8:39 PM SOCIAL SCIENCES RESEARCH SCIENTIST IMPRESSION: 1. Right supraorbital/frontal scalp soft tissue hematoma and edema, in keeping with clinical history. No definite CT evidence of acute intracranial abnormality, as above. 2. Small vessel disease and volume loss. 3. Surgical changes of right mastoidectomy and cochlear implant placement. Streak artifact from the cochlear implant somewhat obscures assessment. Ordered By: ALVARO WARREN Interpreted By: Luis Antonio Boo MD, 05/23/2024 8:36 PM Narrative 05/23/2024 8:39 PM SOCIAL SCIENCES RESEARCH SCIENTIST [facility] [address] [place] [address] DATE: 05/23/2024 8:19 PM EXAMINATION: CT of the head CLINICAL HISTORY: Fall. Head injury. COMPARISON: 09/03/2021 TECHNIQUE: CT examination of the head without contrast was performed. Axial and multiplanar images obtained. A dose lowering technique was used for this procedure, which may include, but is not limited to, dose reduction technique, automated exposure control, the use of iterative reconstruction, and ALARA (As Low As Reasonably Achievable) / Image Gently techniques. FINDINGS: Right supraorbital/frontal scalp soft tissue hematoma and edema noted, in keeping with clinical history. Streak artifact from right-sided cochlear implant somewhat obscures assessment. No definite acute intracranial hemorrhage or extra-axial collections. Patchy foci of hypodensity in the hemispheric white matter, likely due to small vessel disease. Intracranial vascular calcifications. No definite CT evidence of acute territorial infarction, though MRI would be more sensitive. Moderate volume loss with enlargement of ventricles and extra-axial/subarachnoid spaces. No depressed calvarial fractures. Surgical changes of right-sided mastoidectomy and cochlear implant placement. Mastoid air cells and paranasal sinuses are clear. Bilateral lens replacements. Procedure Note Luis Antonio Boo MD - 05/23/2024 [facility] [address] [place] [address] DATE: 05/23/2024 8:19 PM EXAMINATION: CT of the head CLINICAL HISTORY: Fall. Head injury. COMPARISON: 09/03/2021 TECHNIQUE: CT examination of the head without contrast was performed.Axial and multiplanar images obtained. A dose lowering technique was used for this procedure, which may include,but is not limited to, dose reduction technique, automated exposurecontrol, the use of iterative reconstruction, and ALARA (As Low AsReasonably Achievable) / Image Gently techniques. FINDINGS: Right supraorbital/frontal scalp soft tissue hematoma and edema noted, inkeeping with clinical history. Streak artifact from right-sided cochlearimplant somewhat obscures assessment. No definite acute intracranialhemorrhage or extra-axial collections. Patchy foci of hypodensity in thehemispheric white matter, likely due to small vessel disease. Intracranialvascular calcifications. No definite CT evidence of acute territorialinfarction, though MRI would be more sensitive. Moderate volume loss withenlargement of ventricles and extra-axial/subarachnoid spaces. Nodepressed calvarial fractures. Surgical changes of right-sidedmastoidectomy and cochlear implant placement. Mastoid air cells andparanasal sinuses are clear. Bilateral lens replacements. IMPRESSION: 1. Right supraorbital/frontal scalp soft tissue hematoma and edema, inkeeping with clinical history. No definite CT evidence of acuteintracranial abnormality, as above. 2. Small vessel disease and volume loss. 3. Surgical changes of right mastoidectomy and cochlear implant placement.Streak artifact from the cochlear implant somewhat obscures assessment. Ordered By: ALVARO WARREN Interpreted By: Luis Antonio Boo MD, 05/23/2024 8:36 PM us Alvaro Warren MD CT Final Resu lt * CT CERV SPINE WO CON (05/23/2024 8:19 PM SOCIAL SCIENCES RESEARCH SCIENTIST) Anatomical Region Laterality Modality Spine Computed Tomogra phy 05/23/2024 8:38 PM SOCIAL SCIENCES RESEARCH SCIENTIST Impressions 05/23/2024 8:42 PM SOCIAL SCIENCES RESEARCH SCIENTIST IMPRESSION: 1. No acute osseous abnormalities identified. 2. Severe multilevel degenerative disc disease and facet arthropathy. Ordered By: ALVARO WARREN Interpreted By: Mulugeta Godinez DO, 05/23/2024 8:38 PM Narrative 05/23/2024 8:42 PM SOCIAL SCIENCES RESEARCH SCIENTIST [address] [place] [address] EXAMINATION: CT CERV SPINE WO CON HISTORY: Fall. Head trauma. Neck pain. COMPARISON: CT cervical spine 09/03/2021. TECHNIQUE: Axial CT images of the cervical spine without the use of intravenous contrast. Sagittal and coronal reformatted image sets. A dose lowering technique was used for this procedure, which may include, but is not limited to, dose reduction technique, automated exposure control, the use of degenerative reconstruction, and ALARA/image gently techniques. FINDINGS: The craniocervical junction and dens are intact. The lateral pillars remain aligned. There is severe C1-C2 arthritic change. No evidence of acute fracture or dislocation. There is no vertebral body height loss. The posterior elements remain aligned. There is significant multilevel degenerative disc disease and facet arthropathy throughout the cervical spine. No evidence of acute osseous impingement upon the spinal canal or neural foramina. No prevertebral soft tissue swelling. No acute-appearing paraspinous soft tissue abnormalities. The partially included neck soft tissues are negative for acute appearing abnormality. The partially included lung apices are clear. Procedure Note Mulugeta Godinez DO - 05/23/2024 [facility] [address] [place] [address] EXAMINATION: CT CERV SPINE WO CON HISTORY: Fall. Head trauma. Neck pain. COMPARISON: CT cervical spine 09/03/2021. TECHNIQUE: Axial CT images of the cervical spine without the use of intravenouscontrast. Sagittal and coronal reformatted image sets. A dose lowering technique was used for this procedure, which may include,but is not limited to, dose reduction technique, automated exposurecontrol, the use of degenerative reconstruction, and ALARA/image gentlytechniques. FINDINGS: The craniocervical junction and dens are intact. The lateral pillarsremain aligned. There is severe C1-C2 arthritic change. No evidence ofacute fracture or dislocation. There is no vertebral body height loss. Theposterior elements remain aligned. There is significant multileveldegenerative disc disease and facet arthropathy throughout the cervicalspine. No evidence of acute osseous impingement upon the spinal canal orneural foramina. No prevertebral soft tissue swelling. No acute-appearingparaspinous soft tissue abnormalities. The partially included neck softtissues are negative for acute appearing abnormality. The partiallyincluded lung apices are clear. IMPRESSION: 1. No acute osseous abnormalities identified. 2. Severe multilevel degenerative disc disease and facet arthropathy. Ordered By: ALVARO WARREN Interpreted By: Mulugeta Godinez DO, 05/23/2024 8:38 PM us Alvaro Warren MD CT Final Resu lt * XR KNEE LT 3V (05/23/2024 8:19 PM SOCIAL SCIENCES RESEARCH SCIENTIST) Anatomical Region Laterality Modality Knee Radiographic Li ging 05/23/2024 8:35 PM SOCIAL SCIENCES RESEARCH SCIENTIST Impressions 05/23/2024 8:36 PM SOCIAL SCIENCES RESEARCH SCIENTIST IMPRESSION: 1. No definite acute fracture or dislocation of the left knee, though osseous demineralization reduces bony detail. 2. Arthritic changes. Small suprapatellar effusion. Ordered By: ALVARO WARREN Interpreted By: Luis Antonio Boo MD, 05/23/2024 8:35 PM Narrative 05/23/2024 8:36 PM SOCIAL SCIENCES RESEARCH SCIENTIST [facility] [address] [facility] [place] [address] EXAMINATION: XR KNEE LT 3V EXAM TIME: 05/23/2024 8:19 PM CLINICAL HISTORY: Pain after fall COMPARISON: None TECHNIQUE: Left knee, 3 views FINDINGS: Osseous demineralization reduces bony detail. Well-corticated ossific density projecting over the lateral tibial spine, possibly dystrophic or degenerative. No acute fracture or dislocation of the left knee. Small suprapatellar effusion. Mild arthritic changes noted in the left knee with joint space narrowing, osteophytic spurs, and scalp, sclerosis. Procedure Note Luis Antonio Boo MD - 05/23/2024 [facility] [address] [place] [address] EXAMINATION: XR KNEE LT 3V EXAM TIME: 05/23/2024 8:19 PM CLINICAL HISTORY: Pain after fall COMPARISON: None TECHNIQUE: Left knee, 3 views FINDINGS: Osseous demineralization reduces bony detail. Well-corticated ossificdensity projecting over the lateral tibial spine, possibly dystrophic ordegenerative. No acute fracture or dislocation of the left knee. Smallsuprapatellar effusion. Mild arthritic changes noted in the left knee withjoint space narrowing, osteophytic spurs, and scalp, sclerosis. IMPRESSION: 1. No definite acute fracture or dislocation of the left knee, thoughosseous demineralization reduces bony detail. 2. Arthritic changes. Small suprapatellar effusion. Ordered By: ALVARO WARREN Interpreted By: Luis Antonio Boo MD, 05/23/2024 8:35 PM us Alvaro Warren MD GENERAL IMAGING Final Resu lt * BONE DENSITY/DEXA (03/08/2023 3:03 PM SOCIAL SCIENCES RESEARCH SCIENTIST) Anatomical Region Laterality Modality Bone Bone Density 03/08/2023 11:0 0 PM SOCIAL SCIENCES RESEARCH SCIENTIST Impressions 03/08/2023 11:02 PM SOCIAL SCIENCES RESEARCH SCIENTIST IMPRESSION: WHO Classification: osteopenia. FRAX: 6.5% chance of hip fracture and 20% chance of major osteoporotic fracture over the next 10 years. Referred By: SCOTT CARIAS Interpreted By: Porfirio Robles MD, 03/08/2023 11:00 PM Narrative 03/08/2023 11:02 PM SOCIAL SCIENCES RESEARCH SCIENTIST Examination: Bone Density Axial Exam Date/Time: 03/08/2023 2:46 PM Reason For Exam: Other primary ovarian failure Comparison: None Findings: DEXA bone densitometry The bone mineral density (BMD) was determined by dual-energy x-ray absorptiometry, the results are as follows: AP Lumbar Spine L1 through L4 BMD Patient (GM/SQCM): 1.111 T-Score (Standard deviations from young adult peak bone density): 0.6 Right femoral neck: BMD Patient (GM/SQCM): 0.622 T-Score (Standard deviations from young adult peak bone density): -2.0 Total Right femur: BMD Patient (GM/SQCM): 0.844 T-Score (Standard deviations from young adult peak bone density): -0.8 Recommendations: All patients should ensure an adequate intake of dietary calcium and vitamin D. The NOF recommend adults under the age of 50 need 1000 mg of calcium and 400-800 IU of vitamin D daily. Effective therapy for the prevention and treatment of osteoporosis include biphosphonates. Follow-up: People with diagnosed cases of osteoporosis or at high risk for fracture should have regular bone mineral density test. For patients eligible for Medicare, routine testing is allowed once every 2 years. Testing frequency can be increased to one year for patients who have rapidly progressing disease, those who are receiving or discontinuing medical therapy to restore bone mass, or have additional risk factors. Procedure Note Porfirio Robles MD - 03/08/2023 Examination: Bone Density Axial Exam Date/Time: 03/08/2023 2:46 PM Reason For Exam: Other primary ovarian failure Comparison: None Findings: DEXA bone densitometry The bone mineral density (BMD) was determined bydual-energy x-ray absorptiometry, the results are as follows: AP Lumbar Spine L1 through L4 BMD Patient (GM/SQCM): 1.111 T-Score (Standard deviations from young adult peak bonedensity): 0.6 Right femoral neck: BMD Patient (GM/SQCM): 0.622 T-Score (Standard deviations from young adult peak bonedensity): -2.0 Total Right femur: BMD Patient (GM/SQCM): 0.844 T-Score (Standard deviations from young adult peak bonedensity): -0.8 Recommendations: All patients should ensure an adequate intake of dietary calcium andvitamin D. The NOF recommend adults under the age of 50 need 1000 mg ofcalcium and 400-800 IU of vitamin D daily. Effective therapy for theprevention and treatment of osteoporosis include biphosphonates. Follow-up: People with diagnosed cases of osteoporosis or at high risk for fractureshould have regular bone mineral density test. For patients eligible forMedicare, routine testing is allowed once every 2 years. Testing frequencycan be increased to one year for patients who have rapidly progressingdisease, those who are receiving or discontinuing medical therapy torestore bone mass, or have additional risk factors. IMPRESSION: WHO Classification: osteopenia. FRAX: 6.5% chance of hip fracture and 20% chance of major osteoporoticfracture over the next 10 years. Referred By: SCOTT CARIAS Interpreted By: Porfirio Robles MD, 03/08/2023 11:00 PM Scott CORBETT DEXA Final Result from Last 3 Months or Most Recently Relevant to Health Maintenance Insurance [employer] Care Teams High School Sports Coach Relationship Specialty Start Date End Date Kecia Rader DO [address] [place] [address] PCP - General FAMILY PRACTICE 05/23/24
--- OUTSIDE RECORDS SUMMARY | 2024-08-15 11:40 | XMS_ITS | Continuity of Care Document ---
Author Organization [facility] Address [address] [place] [address] [place] [address] Phone Care Team Providers Care Coarse Wire Drawer Name Role Phone Norman Zeng Unavailable Unavailable Procedures Procedure Date Office Consultation Advance Directives Directive Yes / No Effective Date File Name No Information Encounters Encounter Description Practice Location Reason(s) For Visit Diagnoses Date Provider Providers Copied on Encounter Office Consultation [facility], [address], [place], [place], [id number], [place] tel:[phone] [facility] No Information [address] [place], [place], [facility] [place], [place]. tel:[phone] Referring Provider: Rigoberto Lincoln, [address], [place], [place], [facility] [place]. tel:[phone] Family History Family Member Type Diagnosis Age At Onset No Information Payers Payer name Insurance type Covered republican ID Authoriza tion(s) No Information Social History [...]
--- OUTSIDE RECORDS SUMMARY | 2024-08-15 11:40 | XMS_ITS | Encounter Summary ---
Author Organization [facility] Address [address] [place] [address] Care Team Providers Care Patent Solicitor Name Role Phone Pelon Raman MD, Jack Mir Primary Care Provider Anne Xiao DO Primary Care Provider + Adriane Finn Primary Care Provider [phone] Encounter Details Date Type Department Care Team (Late st Contact Info) Description 09/26/2019 Telephone [facility] [place] [address] Anne Busch [place] Social History Tobacco Use Types Packs/Day Years Used Date Smoking Tobacco: Never Comments Unknown Sex and Gender Information Value Date Recorded Sex Assigned at Not on file Legal Sex 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 Gender Identity Not on file Sexual Orientation Not on file documented as of this encounter Plan of Treatment Not on file documented as of this encounter Visit Diagnoses Not on filedocumented in this encounter Care Teams Patent Solicitor Relationship Specialty Start Date End Date Jack Bird Jr., MD [address] [place] [id number] PCP - General Geriatric Medicine 04/30/19 10/28/20 Anne Xiao DO [address] [place] [id number] PCP - General Family Medicine 10/29/20 07/05/22 Adriane Finn PA [address] [place] [address] PCP - General Physician Data Developer 07/06/22 documented as of this encounter
--- OUTSIDE RECORDS SUMMARY | 2024-08-15 11:40 | XMS_ITS | Clinical Summary ---
Author Organization [facility] Address [address] [place] [address] Care Team Providers Care Cashier Ticket Selling Name Role Phone Adriane Finn Primary Care Provider [phone]- [phone] Allergies Active Allergy Reactions Criticality Noted Date Comments Latex Rash Medium 09/22/2018 Medications simvastatin (ZOCOR) 40 mg tablet Take 40 mg by mouth nightly Active famotidine (PEPCID) 40 mg tablet Take 40 mg by mouth daily Active levothyroxine sodium (TIROSINT) 112 mcg capsule Take 112 mcg by mouth blade grinder before breakfast Active alendronate (FOSAMAX) 35 mg tabletIndications :Post-Menopausal Osteoporosis Prevention Take 35 mg by mouth every 7 days Take in the morning with a full glass of water, on an empty stomach, and do not take anything else by mouth or lie down for the next 30 min. Active sertraline (ZOLOFT) 100 mg tablet Take 100 mg by mouth daily Active methylPREDNISolon e (MEDROL DOSEPACK) 4 mg Dosepack Take as directed on package 1 packet 0 Active HYDROcodone-aceta minophen ([place]) 5-325 mg per tabletIndications :Pain Take 1 tablet by mouth every 6 (six) hours as needed for pain 15 tablet 0 Active Active Problems Problem Noted Date Diagnosed Date Benign paroxysmal positional vertigo of right ea r 07/19/2020 Sensorineural hearing loss, bilateral 05/23/2019 Other fatigue 03/24/2015 Other and unspecified hyperlipidemia 05/06/2014 Overview (05/02/2019): Converted unresolved ICD9, potential mismatch. Chronic kidney disease, stage 3 (moderate) 10/25 Hypertensive chronic kidney disease with stage 1 through stage 4 chronic kidney disease, or unspecified chronic kidney disease 10/26/2011 Immunizations Immunization Administration Dates Next Due Pneumococcal Polysaccharide PPV23 11/04/2019 Surgical History Surgery Date Site/Laterality Comments REPLACEMENT TOTAL KNEE TONSILLECTOMY CHOLECYSTECTOMY HYSTERECTOMY Medical History Medical History Date Comments Kidney disease Family History Medical History Relation Name Comments Cancer Father Heart disease Mother Relation Name Status Comments Father Mother Social History Tobacco Use Types Packs/Day Years Used Date Smoking Tobacco: Never Alcohol Use Standard Drinks/Week Comments Yes 1 (1 standard drink = 0.6 oz pur e alcohol) socially Comments No Sex and Gender Information Value Date Recorded Sex Assigned at Not on file Legal Sex Female 2:45 AM EDITING COMPUTER PUBLISHER Gender Identity Not on file Sexual Orientation Not on file Obstetrics History Last Filed Vital Signs Vital Sign Reading Time Taken Comments Blood Pressure 138/76 10/02/2019 12:25 PM CDT Pulse 100 10/02/2019 12:30 PM CDT Temperature 36.9 C (98.5 F) 10/02/2019 11:26 AM CDT Respiratory Rate 11 10/02/2019 12:3 0 PM CDT Oxygen Saturation 95% 10/02/2019 12: 30 PM CDT Inhaled Oxygen Concentration - - Weight 63.8 kg (140 lb 10.5 oz) 10/02/2019 8:53 AM CDT Height 152.4 cm (5') 10/02/2019 8:53 AM CDT Body Mass Index 27.47 10/02/2019 8:53 AM CDT Plan of Treatment Health Maintenance Due Date Last Done Comments Depression Screening 1945 Fall Risk Assessment 1945 DTaP/Tdap/Td Vaccine (1 - Tdap) 11/15/1954 Well Visit 65+ 11/15/2008 Influenza Vaccine (#1) 2023 , 01/22/2019, 12/27/2017, Additional history exists Osteoporosis Screening-Bone Density Scan 03/08/2025 03/08/2023, 08/25/2020 Hepatitis B Screening Completed 01/22/2019 Pneumococcal vaccine 65+ Completed 020, 12/29/2014, 12/08/2009 Zoster Vaccine Completed 03/19/2020, 01/14/2020 Medical Devices Implanted Type Area Commercial Trailer Truck Driver Device Identifier Shelf Expiration Date Model / Serial / Lot Cochlear Americas [id number] Implant Cochlear Cochlear Nucleus Profile Plus Slim Modiolar Electrode [id number] - [id number] - [id number] Implanted:Qty : 1 on 10/02/2019 by Rene Cruz MD at [facility] Right: Cochlea Cochlear [employer] [id number] 05/21/2021 [id number] / [id number] / Cochlear [employer] Dualn7 Nucleus 7 2 Kit Processor Sound Kanso [id number] - [id number] Implanted:Qty : 1 on 10/02/2019 by Rene Cruz MD at [facility] Right: Cochlea Cochlear [employer] [id number] / / Insurance [id number] [place] [address] MEDICARE HMO HMO REF HUMANA CHOICE MEDICARE PPO [facility] [address] [address] Care Teams Cashier Ticket Selling Relationship Specialty Start Date End Date Adriane Finn PA [address] [place] [address] [id number] PCP - General Physician Manager Architectural 07/06/22
--- OUTSIDE RECORDS SUMMARY | 2024-08-15 11:40 | XMS_ITS | Encounter Summary ---
Author Organization [facility] Address [facility] [place] [address] Care Team Providers Care Roofing Supervisor Name Role Phone Jack Bird MD Primary Care Provider Unava ilable Anne Xiao DO Primary Care Provider [phone] Sang Galindo MD Primary Care Provider + [phone] Merlene Schreiber MASS SPEC Primary Care Provider + [phone] Kecia Rader DO Primary Care Provider +1- [phone] Encounter Details Date Type Department Care Team (Late st Contact Info) Description 09/14/2018 Abstract [facility] CONVERSION [address] [place] [address] , Generic Conversion, Social History Tobacco Use Types Packs/Day Years Used Date Smoking Tobacco: Never Assessed Comments Unknown Sex and Gender Information Value Date Recorded Sex Assigned at Female 05/23/2024 7:46 PM HOUSING INSPECTORS Legal Sex Female 6:09 PM CDT Gender Identity Female 05/23/2024 7:47 PM HOUSING INSPECTORS Sexual Orientation Straight 05/23/2024 7: 47 PM HOUSING INSPECTORS documented as of this encounter Plan of Treatment Not on file documented as of this encounter Visit Diagnoses Not on filedocumented in this encounter Care Teams Roofing Supervisor Relationship Specialty Start Date End Date Jack Bird MD PCP - General INTERNAL MEDICINE 09/16/18 09/02/21 Anne Xiao DO PCP - General FAMILY PRACTICE 09/03/21 05/24/22 Sang Galindo MD [address] [place] [address] PCP - General FAMILY PRACTICE 05/25/22 11/19/23 [place] [address] [address] PCP - General Nurse Practitioner Family 11/20/2305/10 Kecia Rader DO [address] [place] [address] PCP - General FAMILY PRACTICE 05/23/24 documented as of this encounter
--- OUTSIDE RECORDS SUMMARY | 2024-08-15 11:40 | XMS_ITS | Encounter Summary ---
Author Organization [facility] Address [facility] [place] [address] Care Team Providers Care Education Program Coordinator Name Role Phone Merlene Schreiber CARBONATION EQUIPMENT OPERATOR Primary Care Provider Kecia Rader DO Primary Care Provider [phone]- [phone] Encounter Details Date Type Department Care Team (Late st Contact Info) Description 11/30/2023 Prep for Procedure [facility] [address] [place], [place] [id number] Bashir Cody MD [facility]. [facility] [address] [place], [place] [id number] Social History Tobacco Use Types Packs/Day Years Used Date Smoking Tobacco: Former Cigarettes Passive Smoke Exposure: Past Smokeless Tobacco: Never Passive Exposure Comments:rosey garette smoker Alcohol Use Standard Drinks/Week Comments Not Currently 0 (1 standard drink = 0.6 oz pur e alcohol) PHQ-2 Answer Date Recorded Patient Health Questionnaire-2 Score 2 11/26/2023 Comments No Sex and Gender Information Value Date Recorded Sex Assigned at Female 05/23/2024 7:46 PM SLITTER SCORER CUT OFF OPERATOR Legal Sex Female 6:09 PM CDT Gender Identity Female 05/23/2024 7:47 PM SLITTER SCORER CUT OFF OPERATOR Sexual Orientation Straight 05/23/2024 7: 47 PM SLITTER SCORER CUT OFF OPERATOR documented as of this encounter Plan of Treatment Not on file documented as of this encounter Visit Diagnoses Not on filedocumented in this encounter Additional Health Concerns Assessment Noted Time PHQ-9 Depression Total Score: 3 11/26/19 24 3:13 PM CDT documented as of this encounter Care Teams Education Program Coordinator Relationship Specialty [place] [address] [address] PCP - General Nurse Practitioner Family 11/20/2305/10 Kecia Rader DO [address] [place] [address] PCP - General FAMILY PRACTICE 05/23/24 documented as of this encounter
--- OUTSIDE RECORDS SUMMARY | 2024-08-15 11:40 | XMS_ITS | Clinical Summary ---
Author Organization [facility] Address [address], [place] [address] Phone Care Team Providers Care Bucket Wash Operator Name Role Phone Sang Galindo Primary Care Provider [phone] Allergies Active Allergy Reactions Criticality Noted Date Comments Latex Rash Medium 09/22/2018 Sulfa Antibiotics Rash Low 09/03/2021 Medications Multiple Vitamin (MULTIVITAMIN) capsule 12/17/2011 Active tiZANidine (ZANAFLEX) 4 MG tablet 1prn 0 09/19/2017 Active simvastatin (ZOCOR) 40 MG tablet 1 daily at night 12 11/19/2013 Active alendronate (FOSAMAX) 70 MG tablet 1weekly 0 09/19/2017 Active calcium 500 MG tablet 1 tid wiht meals 12/17/2011 Active traMADol (ULTRAM) 50 MG tablet 1 bid prn 0 09/19/2017 Active sertraline (ZOLOFT) 100 MG tablet 2 daily 0 01/15/2013 Active levothyroxine (SYNTHROID, LEVOTHROID) 112 MCG tablet 1 tablet (112 mcg) orally daily in the morning on an empty stomach 0 03/22/2016 Active lisinopril (PRINIVIL) 10 MG tablet TAKE 1 TABLET EVERY DAY 90 tablet 3 07/25/2021 Active omeprazole (PriLOSEC) [address] capsule 08/20/2021 Activ e Farxiga 5 MG tablet 03/17/2022 Active Active Problems Problem Noted Date Diagnosed Date Sensorineural hearing loss, bilateral 05/23/2019 Other fatigue 03/24/2015 Other and unspecified hyperlipidemia 05/06/2014 Overview (06/22/2018): Converted unresolved ICD9, potential mismatch. Stage 3a chronic kidney disease 10/26/2011 Hypertensive chronic kidney disease with stage 1 through stage 4 chronic kidney disease, or unspecified chronic kidney disease 10/26/2011 Immunizations Immunization Administration Dates Next Due Influenza TIV (IM) 12/22/2021 Influenza Vac Tissue-cultured Subunit Quadrivale nt 01/22/2019 Pneumococcal Conjugate 12/08/2009 Pneumococcal Polysaccharide 11/04/2019 Family History Medical History Relation Comments Kidney disease Neg Hx Social History Tobacco Use Types Packs/Day Years Used Date Smoking Tobacco: Former Smokeless Tobacco: Never Alcohol Use Standard Drinks/Week Comments Yes 0 (1 standard drink = 0.6 oz pur e alcohol) AUDIT-C Answer Date Recorded Frequency of Alcohol Consumption Monthly or less 09/25/2018 Average Number of Drinks Not on file 019 Frequency of Binge Drinking Not on file 09/07 Comments Unknown Sex and Gender Information Value Date Recorded Sex Assigned at Not on file Legal Sex Female 7:31 AM [facility] Gender Identity Not on file Sexual Orientation Not on file Last Filed Vital Signs Vital Sign Reading Time Taken Comments Blood Pressure 118/80 03/27/2022 1:20 PM COMPANY LABORER Pulse 72 03/27/2022 1:20 PM COMPANY LABORER Temperature 35.6 C (96 F) 03/27/2022 1:20 PM COMPANY LABORER Respiratory Rate - - Oxygen Saturation - - Inhaled Oxygen Concentration - - Weight 61.7 kg (136 lb) 03/27/2022 1:20 PM COMPANY LABORER Height 157.5 cm (5' 2 ) 03/27/2022 1:20 PM COMPANY LABORER Body Mass Index 24.87 03/27/2022 1:20 PM COMPANY LABORER Plan of Treatment Health Maintenance Due Date Last Done Comments Pneumococcal PPSV23/PCV13 65 + Years / High and Highest Risk (2 of 3 - PCV) 11/03/2020 11/04/2019 Influenza Vaccine (Season Ended) 2024 12/23/19 22 Insurance HUMANA Care Teams Bucket Wash Operator Relationship Specialty Start Date End Date Sang Galindo PCP - General Family Medicine 03/27/22
--- OUTSIDE RECORDS SUMMARY | 2024-08-15 11:40 | XMS_ITS | Referral Summary ---
Author Organization [facility] Address [address] [facility] [place] [address] Care Team Providers Care Potato Inspector Name Role Phone Adriane Finn Primary Care Provider [phone] Allergies Active Allergy Reactions Criticality Noted Date Comments Latex Rash Medium 09/22/2018 Medications simvastatin (ZOCOR) 40 mg tablet Take 40 mg by mouth nightly Active famotidine (PEPCID) 40 mg tablet Take 40 mg by mouth daily Active levothyroxine sodium (TIROSINT) 112 mcg capsule Take 112 mcg by mouth early childhood education coordinator before breakfast Active alendronate (FOSAMAX) 35 mg [...] package 1 packet 0 Active HYDROcodone-aceta minophen ([place]) 5-325 mg per tabletIndications :Pain Take 1 [...] Dates Next Due Pneumococcal Polysaccharide PPV23 11/04/2019 Social History Tobacco Use Types Packs/Day Years Used Date Smoking Tobacco: Never Alcohol Use Standard Drinks/Week Comments Yes 1 (1 standard drink = 0.6 oz pur e alcohol) socially Comments No Sex and Gender Information Value Date Recorded Sex Assigned at Not on file Legal Sex Female 2:45 AM LOGISTICS TECHNICIAN Gender Identity Not on file Sexual Orientation [...] 10/02/2019 8:53 AM CDT Plan of Treatment Not on file Medical Devices Implanted Type Area School Child Care Attendant Device Identifier Shelf Expiration Date Model / Serial / Lot Cochlear [employer] [id number] Implant Cochlear Cochlear Nucleus Profile Plus Slim Modiolar Electrode [id number] - [id number] - [id number] Implanted:Qty : 1 on 10/02/2019 by Rene Cruz MD at [facility] Right: Cochlea Cochlear [employer] [id number] 05/21/2021 [id number] / [id number] / Cochlear [employer] Dualn7 Nucleus 7 2 Kit Processor Sound Kanso [id number] - [id number] Implanted:Qty : 1 on 10/02/2019 by Rene Cruz MD at [facility] Right: Cochlea [employer]chlear [employer] [id number] / / Insurance HUMANA MEDICARE HMO [facility] HMO REF HUMANA CHOICE MEDICARE PPO Care Teams Potato Inspector Relationship Specialty Start Date End Date Finn, Adriane I., PA [address] [place] [address] PCP - General Physician Veterans Adviser 07/06/22
[2024-08-15 19:57] LABS: Basophils Absolute Auto 0.1 K/mm3 (0.0-0.1); Basophils Percent Auto 0.7 % (0.2-1.2); Eosinophils Absolute Auto 0.2 K/mm3 (0-0.3); Eosinophils Percent Auto 2.3 % (0-4.4); Hematocrit 35.4 % (37.0-47.0); Hemoglobin 10.6 g/dL (12.0-15.0); Immature Granulocyte Absolute 0.02 K/mm3 (0.00-0.031); Immature Granulocyte Percent A 0.3 % (0-0.5); Lymphocytes Absolute Auto 1.96 K/mm3 (0.9-3.2); Lymphocytes Percent Auto 28.7 % (18.3-44.2); Mean Corpuscular HGB Conc 29.9 g/dl (32-36); Mean Corpuscular Volume 103.5 fl (80-100); Mean Platelet Volume 12.4 fl (7.4-10.4); Monocytes Absolute Auto 0.4 K/mm3 (0.1-0.6); Monocytes Percent Auto 6.1 % (2.6-8.5); Neutrophils Absolute Auto 4.2 K/mm3 (1.3-6.7); Neutrophils Percent Auto 61.9 % (45.5-73.1); Platelet Count Result 138 k/mm3 (150-375); Red Blood Count 3.42 M/mm3 (4.2-5.4); Red Cell Distribution Width 14.6 % (11.5-14.5); White Blood Count 6.8 K/mm3 (4.5-10.0)
[2024-08-15 20:01] LABS: Free T3 3.09 pg/mL (2.34-5.61); Free T4 Free Thyroxine 1.26 ng/dL (0.78-2.19); Vitamin D 25 Hydroxy 65.8 ng/mL
[2024-08-15 20:31] LABS: Alanine Aminotransferase 20 U/L (6-35); Albumin Level 4.2 g/dL (3.5-5.1); Alkaline Phosphatase 84 U/L (38-126); Anion Gap 9 mmol/L (4-12); Aspartate Amino Transferase 40 U/L (14-36); Bilirubin,Total 0.3 mg/dL (0.2-1.3); Blood Urea Nitrogen 32 mg/dL (7-17); Calcium 9.5 mg/dL (8.4-10.2); Carbon Dioxide 25 mmol/L (22-30); Chloride 105 mmol/L (98-107); Cholesterol 180 mg/dL (0-200); Estimated Glomerular Filt Rate 40; Glucose 86 mg/dL (65-110); HDL Direct 65 mg/dL; Potassium 5.7 mmol/L (3.4-5.0); Sodium 139 mmol/L (137-145); Triglycerides 97 mg/dL (<150)
[2024-08-15 20:35] LABS: Hypochromasia 1+; Platelet Estimate Slightly Decreased (Adequate); Schistocytes None Seen
[2024-08-15 20:36] LABS: Ovalocytes 1+
[2024-08-15 20:42] LABS: LDL Cholesterol Direct 73 mg/dL
== END 2024-08-15 11:37 | disposition home or self-care (01) ==
LOC: ANHGOSHLAB 11:37
PROVIDERS: PCP Family Medicine; Visit Provider Nurse Practitioner
DX: D69.6 Thrombocytopenia, unspecified (principal); E03.9 Hypothyroidism, unspecified; I10 Essential (primary) hypertension; E78.2 Mixed hyperlipidemia; M81.0 Age-related osteoporosis without current pathological fracture
CPT/HCPCS: 36415; 80053; 80061; 82306; 84439; 84443; 84481; 85025

== ENCOUNTER 2024-09-04 09:19 | Outpatient (CLI) | payer MEDICARE, SELFPAY ==
--- NOTE | ~2024-09-04 | XR_ITS ---
XR hand BI arthritis min 3V Ordering provider: Kecia Rader DO History: . pain multiple joints bilat hands; Rt worse than Lt hand . Comparison: October 22, 2017 FINDINGS: RIGHT HAND: --BONES: No acute fracture or dislocation. Periarticular osteopenia. --JOINT SPACES: Narrowing of the proximal and distal interphalangeal joints with erosive changes.. No sclerosis. osteophytes are noted Narrowing of the first carpometacarpal joint. --SOFT TISSUES: Soft tissue swelling around the proximal interphalangeal joints. No soft tissue swell ing or nodules. LEFT HAND: --BONES: No acute fracture or dislocation. osteopenia. --JOINT SPACES: Narrowing of the proximal and distal interphalangeal joints. erosion and osteophytosi s are noted. Narrowing of the first carpometacarpal joint. --SOFT TISSUES: Unremarkable. No soft tissue swelling or nodules. IMPRESSION: 1. No acute osseous abnormality bilateral hands. 2. 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 Clinical correlation and follow-up advised. Reviewed, dictated and finalized at location A. IMPRESSION: 1. No acute osseous abnormality bilateral hands. 2. 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 Clinical correlati on and follow-up advised.
== END 2024-09-04 09:20 | disposition home or self-care (01) ==
LOC: GOSHIMG 09:19
PROVIDERS: PCP Family Medicine; Visit Provider Family Medicine
DX: M79.641 Pain in right hand (principal)
CPT/HCPCS: 73130

== ENCOUNTER 2024-11-29 08:27 | Emergency (ER) | payer MEDICARE, SELFPAY ==
--- OUTSIDE RECORDS SUMMARY | 2006-12-13 09:17 | XMS_ITS | Continuity of Care Document ---
Author Organization [facility] Address [address] [place] [address] [place] [address] Phone Care Team Providers Care Applications Support Lead Name Role Phone Norman Zeng Unavailable Unavailable Procedures Procedure Date Office Consultation Advance Directives Directive Yes / No Effective Date File Name No Information Encounters Encounter Description Practice Location Reason(s) For Visit Diagnoses Date Provider Providers Copied on Encounter Office Consultation [facility], [address], [place], [place], [id number], [place] tel:[phone] [facility] No Information 6-[address] Azucena Austin. [address] [place], [place], [facility], [place]. tel:[phone] Referring Provider: Rigoberto Lincoln, [address] [facility] [address], [place], [place], [facility]. tel:[phone] Family History Family Member Type Diagnosis Age At Onset No Information Payers Payer name Insurance type Covered alliance party ID Authoriza tion(s) No Information Social History Type Description Quantity Date Captured Comments Sex Female Smoking Status No Information Chief Complaint And Reason For Visit No Information Reason For Referral Reason For Referral No Information History Of Present Illness Encounter Date Complaint History Of Prese nt Illness No Information Functional Status Date Functional Assessmen t No Information Instructions Date Instruction Additional Infor mation No Information Assessments Type Assessment Date No Information Patient Care Teams Name Effective Dates (start - stop) Status Members No Information
--- NOTE | ~2024-11-29 | XR_ITS ---
XR knee LT min 4V 11/29/2024 08:57 Indication: Left knee pain for 3 days Procedure: 4 views left knee Comparison: Comparison to multiple prior studies sequentially, with oldest reviewed study dated 06/17/2018. Findings: No fracture, subluxation or dislocation. Moderate joint effusion. There is patellofemoral compartment osteoarthritis. No foreign bodies. Impression: 1: Moderate joint effusion. Reviewed, dictated and finalized at location O. Impression: 1: Moderate joint effusion.
--- NOTE | 2024-11-29 08:31 | ED.LOWEXIN ---
HPI - Extremity Injury (Lower) General Chief Complaint: Extremity Problem,Nontraumatic Stated Complaint: LT Knee Pain Time Seen by Provider: 11/29/24 08:45 Source: patient Mode of arrival: ambulatory Limitations: no limitations History of Present Illness HPI Narrative: Sona is an 79-year-old female patient presenting to the clinic today with complaints of left knee pain x3 days. She has been taking Tylenol for the knee pain and it has not been helping. Currently rates her pain 10/10. No known injury to her knee but she has been working out in the yard. States the pain is to the anterior knee but also reports pain is to the posterior knee. History of right knee replacement. Related Data Home Medications ?Medication ?Instructions ?Recorded ?Confirmed ?Last Taken ?Type acetaminophen 500 mg tablet 1,000 mg PO BID PRN Pain 07/16/20 11/29/24 07/22/20 08:30 History (Tylenol Extra Strength) aspirin 325 mg tablet 325 mg PO DAILY 12/21/22 11/29/24 Unknown History multivitamin 1 tablet PO DAILY 09/12/23 11/29/24 Unknown History alendronate 70 mg tablet 70 mg PO WEEKLY 08/15/24 11/29/24 Unknown History Allergies Allergy/AdvReac Type Severity Reaction Status Date / Time latex Allergy Unknown Hives Verified 11/29/24 08:30 Sulfa (Sulfonamide Allergy Unknown Hives Verified 11/29/24 08:30 Antibiotics) NSAIDS (Non-Steroidal AdvReac Unknown kidney Verified 11/29/24 08:30 Anti-Inflamma Review of Systems Review of Systems: Pertinent positives per HPI. Patient denies any fever, chills, rash, headache, visual changes, dizziness, cough, runny nose, sore throat, shortness of breath, chest pain, palpitations, nausea, vomiting, diarrhea, constipation, abdominal pain, or any urinary issues. ON LICENSE OF [facility] Past Medical History Medical History Acute otitis externa Acute otitis media Chronic kidney disease, stage 3b Cataract Lesion of face Right ankle pain Osteoarthritis cervical spine History of colon polyps Chronic cystitis Hemorrhoid BRBPR (bright red blood per rectum) Osteoporosis Kidney disease Arthritis Unsteady gait when walking Presbycusis Age-related osteoporosis with current pathological fracture of femur Hypertensive chronic kidney disease with stage 1 through stage 4 chronic kidney disease, or unspecified chronic kidney disease Degenerative disc disease, cervical Hiatal hernia with GERD without esophagitis Osteopenia of femoral neck, bilateral Degenerative joint disease of knee Right Obstructive sleep apnea Did tolerate CPAP, sleep study 12/24/2018-moderate CAROL ANN with severe desaturation. Elevated limb movement index. Hypothyroidism (acquired) Surgical History Surgical History History of bilateral cataract extraction History of appendectomy History of cholecystectomy History of unilateral oophorectomy History of partial hysterectomy H/O cystoscopy Cochlear implant in place History of total right knee replacement Family History Family History Mother Family history of diabetes mellitus in first degree relative Family history of coronary artery disease Diabetes mellitus Asthma Father Family history of lung cancer Sibling Diabetes mellitus Crohn's colitis Other Family history of cardiovascular disease Family history of gastrointestinal disorder Family history of thyroid disease Social History Social History Smoking status: Never smoker Second hand tobacco smoke exposure: Yes Alcohol intake: current Drinks per week: 1 Alcohol use details: wine cooler Substance use: never Substance use type: does not use Do You Feel Safe in your Home?: Yes Lack of Transportation: No Lack of Food: Never True Current Housing: I Have Housing Concerned About Future Housing: No Difficulty Paying Gas/Electric Bills: No Difficulty Paying for Meds: No Currently Unemployed: No Education: High School Diploma/GED Difficulty w/ Childcare or Family Care: No Living arrangements: with family Occupation/Education: retired Gender identity (if verbalized by the patient): Female Sexual Orientation (if Verbalized by the Patient): Straight or Heterosexual Spiritual care concerns: No Agree to blood products: Yes Comments At the time of my signature, I reviewed and agree with the nursing past medical, surgical, social, and family history. There is no relevant family history pertinent to the patient complaint. Exam Narrative: General: Well-developed, well nourished, in no apparent distress Head: Normocephalic, atraumatic. Cardio: Regular rate and rhythm, s1 and s2 normal, no murmur appreciated. Resp: Clear to auscultation bilaterally, no rhonchi, rales, wheezing or rubs. Musculoskeletal: No deformity, left knee mildly swollen when compared to right knee, tender to palpation over the right anterior medial knee, crepitus felt with flexion and extension, pain with flexion and extension of the knee, pain with weight-bearing, grossly normal range of motion, muscle strength strong and equal, peripheral pulse strong, no edema, no cyanosis, walks with a single-point cane Course Course Emergency Course: Portions of this record may have been created with voice recognition software. Level of Care: Express Care Visit Vital Signs Vital signs: Vital Signs Temperature 36.4 C 11/29/24 08:39 Pulse Rate 84 11/29/24 08:39 Respiratory Rate 18 11/29/24 08:39 Blood Pressure 131/88 11/29/24 08:39 Pulse Oximetry 100 11/29/24 08:39 Oxygen Delivery Room Air 11/29/24 08:39 Temperature 36.4 C 11/29/24 08:39 Pulse Rate 84 11/29/24 08:39 Respiratory Rate 18 11/29/24 08:39 Blood Pressure 131/88 11/29/24 08:39 Pulse Oximetry 100 11/29/24 08:39 Oxygen Delivery Room Air 11/29/24 08:39 Vital signs reviewed MDM - Extremity Injury (Lower) MDM Narrative Medical decision making narrative: At the time of visit patient is resting comfortably on the exam table. Patient appears to be nontoxic. Complaints of left knee pain x3 days. She has been taking Tylenol for the knee pain and it has not been helping. Currently rates her pain 10/10. No known injury to her knee but she has been working out in the yard. States the pain is to the anterior knee but also reports pain is to the posterior knee. History of right knee replacement. On exam patient has mild left knee swelling, crepitus with flexion extension, pain with flexion extension and bearing weight, pain to palpation over the anterior medial knee joint X-ray of the left knee was ordered. Diagnostics: Left knee x-ray was performed and shows a moderate knee effusion with patellofemoral osteoarthritis. Plan: I suspect patient has a moderate knee joint effusion with patellofemoral osteoarthritis. Patient reports that she is almost out of her tramadol and only has 3 pills left. Will give her a short course of tramadol on until she can follow-up with her PCP and also send in a prescription for a Medrol Dosepak. Gino wrap was applied and ice pack was given. Sensation, circulation, and motion within normal limits after Gino wrap application. Supportive measures were discussed with the patient and they voiced understanding discharge instructions and agrees to treatment plan. Return precautions reviewed Differential Diagnosis Differential diagnosis: Likely acute internal derangement of knee and other (Tibia fracture, femur fracture, patella fracture, osteoarthritis, rheumatoid arthritis, knee sprain) Imaging Data Radiologist's impression: ITS Impressions Knee X-Ray 11/29/24 09:08 Impression: 1: Moderate joint effusion. Discharge Plan Discharge Clinical Impression: Osteoarthritis of left patellofemoral joint, Effusion of knee joint, left Acute knee pain Qualifiers: Laterality: left Qualified Code(s): M25.562 - Pain in left knee Patient Disposition: Home Condition: Stable Instructions: Antibiotic Form, Osteoarthritis (ED), Swollen Knee Joint (ED) Additional Instructions: Rest, ice, elevate, and wear gino wrap as directed May take 1000 mg of Tylenol 3 times a day for xdms-py-efrkvyze pain as discussed. May take 50 mg of tramadol every 6 hours as needed for moderate to severe pain-small refill was given in the clinic today Take Medrol Dosepak as prescribed Gradually bear weight Follow up with your PCP if symptoms persist more than 1 week. Follow-up with your orthopedic doctor in 5-7 days if symptoms persist Patient Language: Malay Prescriptions: New tramadol 50 mg tablet 50 mg PO Q6H PRN (Reason: pain) 3 Days Qty: 12 0RF methylprednisolone [Medrol (Melo)] 4 mg tablets,dose pack See Rx Instructions PO .COMPLEX Qty: 21 0RF Rx Instructions: orally per package directions No Action aspirin 325 mg tablet 325 mg PO DAILY Patient Comments: PAD / claudication alendronate 70 mg tablet 70 mg PO WEEKLY multivitamin [Daily Multivitamin] Tablet 1 tablet PO DAILY acetaminophen [Tylenol Extra Strength] 500 mg Tablet 1,000 mg PO BID PRN (Reason: Pain) omeprazole 40 mg capsule,delayed release(DR/EC) See Rx Instructions .ROUTE .COMPLEX Qty: 180 0RF Dose Instruction: TAKE 1 CAPSULE TWICE DAILY Rx Instructions: TAKE 1 CAPSULE TWICE DAILY levothyroxine 100 mcg tablet 100 mcg PO DAILY Qty: 90 1RF tramadol 50 mg tablet 50 mg PO Q6H PRN (Reason: pain) Qty: 30 0RF losartan 50 mg tablet 50 mg PO DAILY Qty: 90 1RF simvastatin 40 mg tablet 40 mg PO QHS Qty: 90 1RF escitalopram oxalate [Lexapro] 20 mg tablet 20 mg PO DAILY Qty: 90 1RF Follow-up/Referrals: Kecia Rader DO [Primary Care Provider, [facility]] Time of Disposition: 09:14 Quality NIHSS Nursing Documentation ED NIHSS nursing documentation: reviewed/agree
--- OUTSIDE RECORDS SUMMARY | 2024-11-29 08:31 | XMS_ITS | Clinical Summary ---
Author Organization [facility] Address [address], [place] [address] Phone Care Team Providers Care Winderman Name Role Phone Sang Galindo Primary Care Provider [phone] Allergies Active Allergy Reactions Criticality Noted Date [...] on file Legal Sex Female 7:31 AM [facility] Gender Identity Not on file Sexual Orientation Not on file Last Filed Vital Signs Vital Sign Reading Time Taken Comments Blood Pressure 118/80 03/27/2022 1:20 PM RUSSIAN HISTORY PROFESSOR Pulse 72 03/27/2022 1:20 PM RUSSIAN HISTORY PROFESSOR Temperature 35.6 C (96 F) 03/27/2022 1:20 PM RUSSIAN HISTORY PROFESSOR Respiratory Rate - - Oxygen Saturation - - Inhaled Oxygen Concentration - - Weight 61.7 kg (136 lb) 03/27/2022 1:20 PM RUSSIAN HISTORY PROFESSOR Height 157.5 cm (5' 2) 03/27/2022 1:20 PM RUSSIAN HISTORY PROFESSOR Body Mass Index 24.87 03/27/2022 1:20 PM RUSSIAN HISTORY PROFESSOR Plan of Treatment Health Maintenance Due Date Last Done Comments Pneumococcal PPSV23/PCV13 65 + Years / Low and Medium Risk (2 of 3 - PCV) 11/03/2020 11/04/2019 Influenza Vaccine (#1) 2024 12/22/2021 Insurance HUMANA Care Teams Winderman Relationship Specialty Start Date End Date Sang Galindo PCP - General Family Medicine 03/27/22
--- OUTSIDE RECORDS SUMMARY | 2024-11-29 08:31 | XMS_ITS | Clinical Summary ---
Author Organization [facility] Address [address] [facility] [place] [address] Care Team Providers Care Bag Machine Operator Name Role Phone Unavailable Primary Care Provider Unavailabl e Social History Tobacco Use Types Packs/Day Years Used Date Smoking Tobacco: Never Assessed Comments Unknown Sex and Gender Information Value Date Recorded Sex Assigned at Not on file Legal Sex Female 2:07 PM CDT Gender Identity Not on file Sexual Orientation Not on file Plan of Treatment Upcoming Encounters Date Type Department Care Team (Late st Contact Info) Description 12/25/2024 1:30 PM CDT Office Visit [facility] Oncology and Hematology - [facility] [address] [facility] [address] [address] Alfredo Landers MD [address] [facility] [address] [place] [address] Health Maintenance Due Date Last Done Comments DTAP/TDAP/TD VACCINES (1 - Tdap) 11/15/1962 PNEUMOCOCCAL VACCINE 50+ YEARS (1 of 1 - PCV) 11/15/18 94 ZOSTER VACCINE (1 of 2) 11/15/1993 OSTEOPOROSIS SCREENING 11/15/2008 RSV VACCINE (60+ or ) (1 - 1-dose 75+ series) 11/15/2018 INFLUENZA VACCINE (#1) 2024 Insurance [facility]
--- OUTSIDE RECORDS SUMMARY | 2024-11-29 08:31 | XMS_ITS | Encounter Summary ---
Author Organization [facility] Address [facility] [place] [address] Care Team Providers Care Poultry Veterinarian Name Role Phone Jack Bird MD Primary Care Provider Unava ilable Anne Xiao DO Primary Care Provider [phone] Sang Galindo MD Primary Care Provider + [phone] Merlene Schreiber PHYSICAL METEOROLOGIST Primary Care Provider + [phone] Kecia Rader DO Primary Care Provider [phone]- [phone] Encounter Details Date Type Department Care Team (Late st Contact Info) Description 09/14/2018 Abstract [facility] CONVERSION [address] [place] [address] , Generic Conversion, Social History Tobacco Use Types Packs/Day Years Used Date Smoking Tobacco: Never Assessed Comments Unknown Sex and Gender Information Value Date Recorded Sex Assigned at Female 05/23/2024 7:46 PM PROOFSHEET CORRECTOR Legal Sex Female 6:09 PM CDT Gender Identity Female 05/23/2024 7:47 PM PROOFSHEET CORRECTOR Sexual Orientation Straight 05/23/2024 7: 47 PM PROOFSHEET CORRECTOR documented as of this encounter Plan of Treatment Not on file documented as of this encounter Visit Diagnoses Not on filedocumented in this encounter Care Teams Poultry Veterinarian Relationship Specialty Start Date End Date Jack Bird MD PCP - General INTERNAL MEDICINE 09/16/18 09/02/21 Anne Xiao DO PCP - General FAMILY PRACTICE 09/03/21 05/24/22 Sang Galindo MD [address] [place] [address] PCP - General FAMILY PRACTICE 05/25/22 11/19/23 [place] [address] [address] PCP - General Nurse Practitioner Family 11/20/2305/10 Kecia Rader DO [address] [place] [address] PCP - General FAMILY PRACTICE 05/23/24 documented as of this encounter
--- OUTSIDE RECORDS SUMMARY | 2024-11-29 08:31 | XMS_ITS | Clinical Summary ---
Author Organization [facility] Address [address] [place] [address] Care Team Providers Care Bookkeeping Assistant Name Role Phone Kecia Rader DO Primary Care Provider [phone]- [phone] Allergies Active Allergy Reactions Criticality Noted Date [...] 03/24/2015 Stage 3 chronic kidney disease 10/26/2011 Immunizations Immunization Administration Dates Next Due Flucelvax [...] Sex Assigned at Female 05/23/2024 7:46 PM CUSTOM PROTECTION OFFICER Legal Sex Female 6:09 PM CDT Gender Identity Female 05/23/2024 7:47 PM CUSTOM PROTECTION OFFICER Sexual Orientation Straight 05/23/2024 7: 47 PM CUSTOM PROTECTION OFFICER Last Filed Vital Signs Vital Sign Reading Time Taken Comments Blood Pressure 134/97 05/23/2024 9:14 PM CUSTOM PROTECTION OFFICER Pulse 80 05/23/2024 9:14 PM CUSTOM PROTECTION OFFICER Temperature 36.3 C (97.4 F) 05/23/2024 9:14 PM CUSTOM PROTECTION OFFICER Respiratory Rate 18 05/23/2024 9:14 PM CUSTOM PROTECTION OFFICER Oxygen Saturation 96% 05/23/2024 9:14 PM CUSTOM PROTECTION OFFICER Inhaled Oxygen Concentration - - Weight 55.3 kg (122 lb) 05/23/2024 7:40 PM CUSTOM PROTECTION OFFICER Height 149.9 cm (4' 11) 05/23/2024 7:40 PM CUSTOM PROTECTION OFFICER Body Mass Index 24.64 05/23/2024 7:40 PM CUSTOM PROTECTION OFFICER Plan of Treatment Health Maintenance Due Date Last Done Comments ASCVD LDL 1945 ASCVD Statin 1945 DTaP, Tdap and Td Vaccines (1 - Tdap) 11/15/1962 Annual Medicare Wellness Visit 11/15/2008 COVID-19 Vaccine ( - season) 2023 12/30/2021, 01/25/2021, 06/27/2020, Additional history exists PHQ-2 (Physician [facility]) 04/09/2024 11/26/2023 Pneumococcal Vaccine: 50+ Years Completed 11/04/2019, 12/29/2014, 12/08/2009 Zoster Vaccines Completed 03/19/2020, 01/14/2020 Dexa Scan (General) Completed 03/08/2023, RSV Immunization or 60+ Years Completed 12/16/2023 Meningococcal B Vaccine Aged Out No l onger eligible based on patient's age to complete this topic Meningococcal Vaccine Aged Out No giuilana samantha eligible based on patient's age to complete this topic RSV Immunizations Under 20 Months Aged Out No longer eligible based on patient's age to complete this topic Procedures Procedure Name Priority Date/Time Associated Diagnosis Comments BONE DENSITY/DEXA Routine 03/08/2023 3:0 3 PM CUSTOM PROTECTION OFFICER Other primary ovarian failure from Last 3 Months or Most Recently Relevant to Health Maintenance Results * BONE DENSITY/DEXA (03/08/2023 3:03 PM CUSTOM PROTECTION OFFICER) Anatomical Region Laterality Modality Bone Bone Density 03/08/2023 11:0 0 PM CUSTOM PROTECTION OFFICER Impressions 03/08/2023 11:02 PM CUSTOM PROTECTION OFFICER IMPRESSION: WHO Classification: osteopenia. FRAX: 6.5% chance of hip fracture and 20% chance of major osteoporotic fracture over the next 10 years. Referred By: ADRIANE CARIAS Interpreted By: Porfirio Robles MD, 03/08/2023 11:00 PM Narrative 03/08/2023 11:02 PM CUSTOM PROTECTION OFFICER Examination: Bone Density Axial Exam Date/Time: 03/08/2023 [...] have additional risk factors. Procedure Note Porfirio Rolbes MD - 03/08/2023 Examination: Bone Density Axial [...] over the next 10 years. Referred By: ADRIANE CARIAS Interpreted By: Porfirio Robles MD, 03/08/2023 11:00 PM Adriane CORBETT DEXA Final Result from Last 3 Months or Most Recently Relevant to Health Maintenance Insurance HUMANA Care Teams Bookkeeping Assistant Relationship Specialty Start Date End Date Kecia Rader DO [address] [place] [address] PCP - General FAMILY PRACTICE 05/23/24
--- OUTSIDE RECORDS SUMMARY | 2024-11-29 08:31 | XMS_ITS | Encounter Summary ---
Author Organization [facility] Address [facility] [place] [address] Care Team Providers Care Assistant Property Manager Name Role Phone Merlene Schreiber RN L AND D Primary Care Provider [phone] Kecia Rader DO Primary Care Provider [phone] Encounter Details Date Type Department Care Team (Late st Contact Info) Description 11/30/2023 Prep for Procedure [facility] THREE [facility], [facility] [address] [place], [place] [id number] Bashir Cody MD [facility]. [facility] [address] [place], [place] [id number] Social History Tobacco Use Types Packs/Day Years [...] Sex Assigned at Female 05/23/2024 7:46 PM PROCESSING REP Legal Sex Female 6:09 PM CDT Gender Identity Female 05/23/2024 7:47 PM PROCESSING REP Sexual Orientation Straight 05/23/2024 7: 47 PM PROCESSING REP documented as of this encounter Plan of Treatment Not on file documented as of this encounter Visit Diagnoses Not on filedocumented in this encounter Additional Health Concerns Assessment Noted Time PHQ-9 Depression Total Score: 3 11/26/19 24 3:13 PM CDT documented as of this encounter Care Teams Assistant Property Manager Relationship Specialty Start [place] [address] [address] PCP - General Nurse Practitioner Family 11/20/2305/10 Kecia Rader DO [address] [place] [address] PCP - General FAMILY PRACTICE 05/23/24 documented as of this encounter
--- OUTSIDE RECORDS SUMMARY | 2024-11-29 08:31 | XMS_ITS | Clinical Summary ---
Author Organization [facility] Address [address] [facility] [place] [address] Care Team Providers Care Manager Regional Name Role Phone Adriane Finn Primary Care Provider [phone]- [phone] Allergies Active Allergy Reactions Criticality Noted Date Comments Latex Rash Medium 09/22/2018 Medications simvastatin (ZOCOR) 40 mg tablet Take 40 mg by mouth nightly Active famotidine (PEPCID) 40 mg tablet Take 40 mg by mouth daily Active levothyroxine sodium (TIROSINT) 112 mcg capsule Take 112 mcg by mouth network director before breakfast Active alendronate (FOSAMAX) 35 mg [...] package 1 packet 0 Active HYDROcodone-aceta minophen ([place]) 5-325 mg per tabletIndications :Pain Take 1 [...] disease, or unspecified chronic kidney disease 10/26/2011 Encounters Date Type Department Care Team Description 09/15/2024 1:00 PM CDT Procedure visit [facility] Medicine Otolaryngology [address] [facility] Medical Office Building [address] [place] [address] Georgie De La Fuente Au.D. 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 Right: Cochlea Cochlear [employer] [id number] 05/21/2021 [id number] / [id number] / Cochlear [employer] Dualn7 Nucleus 7 2 Kit Processor Sound Kanso [id number] - [id number] Implanted:Qty : 1 on 10/02/2019 by Rene Cruz MD at [facility] Right: Cochlea Cochlear [employer] DUALN7 / / Insurance [facility] MEDICARE HMO R HMO REF HUMAN CHOICE MEDICARE PPO Care Teams Manager Regional Relationship Specialty Start Date End Date Adriane Finn PA [address] [place] [phone] PCP - General Physician Sergeant Missile Crewman 07/06/22
[2024-11-29 08:39] VITALS: BP 131/88; PULSE 84; RESP 18; TEMP 36.4; O2SAT 100
== END 2024-11-29 09:18 | disposition home or self-care (01) ==
PROVIDERS: Emergency Provider Nurse Practitioner Family; PCP Family Medicine
DX: M17.12 Unilateral primary osteoarthritis, left knee (principal); M25.462 Effusion, left knee; M25.562 Pain in left knee; I12.9 Hypertensive chronic kidney disease with stage 1 through stage 4 chronic kidney disease, or unspecified chronic kidney disease; N18.32 Chronic kidney disease, stage 3b; E03.9 Hypothyroidism, unspecified; G47.33 Obstructive sleep apnea (adult) (pediatric); M17.11 Unilateral primary osteoarthritis, right knee; M47.812 Spondylosis without myelopathy or radiculopathy, cervical region; M50.30 Other cervical disc degeneration, unspecified cervical region; Z90.711 Acquired absence of uterus with remaining cervical stump; Z96.651 Presence of right artificial knee joint; Z96.21 Cochlear implant status; Z98.42 Cataract extraction status, left eye; Z98.41 Cataract extraction status, right eye
CPT/HCPCS: 73564; 99213; G0463

== ENCOUNTER 2024-12-22 15:56 | Outpatient (NON) | payer MEDICARE, SELFPAY ==
--- OUTSIDE RECORDS SUMMARY | 2006-12-13 09:17 | XMS_ITS | Continuity of Care Document ---
Author Organization [facility] Address [address] [place] [address] [place] [address] Phone Care Team Providers Care Multimedia Producer Name Role Phone Norman Zeng Unavailable Unavailable Procedures Procedure Date Office Consultation Advance Directives Directive Yes / No Effective Date File Name No Information Encounters Encounter Description Practice Location Reason(s) For Visit Diagnoses Date Provider Providers Copied on Encounter Office Consultation [facility], [address], [place], [place], [id number], [place] tel:[phone] [facility] No Information 6-[address] Azucena Austin. [address] [place], [place], [facility], [place]. tel:[phone] Referring Provider: Rigoberto Lincoln, [address] [facility] [address], [place], [place], [facility]. tel:[phone] Family History Family Member Type Diagnosis Age At Onset No Information Payers Payer name Insurance type Covered constitution party ID Authoriza tion(s) No Information Social [...]
--- OUTSIDE RECORDS SUMMARY | 2024-12-22 18:37 | XMS_ITS | Encounter Summary ---
Author Organization [facility] Address [facility] [place] [address] Care Team Providers Care Market Researcher Name Role Phone Merlene Schreiber FIELD SECRETARY Primary Care Provider Kecia Rader DO Primary Care Provider [phone]- [phone] Encounter Details Date Type Department Care Team (Late st Contact Info) Description 11/30/2023 Prep for Procedure [facility] THREE [facility], [facility] [address] [place], [place] [id number] Bashir Cody MD [facility]. [facility] [address] [place], [place] [id number] Social History Tobacco Use Types Packs/Day Years [...] Sex Assigned at Female 05/23/2024 7:46 PM BLOOD BANK SUPERVISOR Legal Sex Female 6:09 PM CDT Gender Identity Female 05/23/2024 7:47 PM BLOOD BANK SUPERVISOR Sexual Orientation Straight 05/23/2024 7: 47 PM BLOOD BANK SUPERVISOR documented as of this encounter Plan of Treatment Not on file documented as of this encounter Visit Diagnoses Not on filedocumented in this encounter Additional Health Concerns Assessment Noted Time PHQ-9 Depression Total Score: 3 11/26/19 24 3:13 PM CDT documented as of this encounter Care Teams Market Researcher Relationship Specialty Start [place] [address] [address] PCP - General Nurse Practitioner Family 11/20/2305/10 Kecia Rader DO [address] [place] [address] PCP - General FAMILY PRACTICE 05/23/24 documented as of this encounter
--- OUTSIDE RECORDS SUMMARY | 2024-12-22 18:37 | XMS_ITS | Clinical Summary ---
Author Organization [facility] John aragon [facility] Address [address] [facility] [place] [address] Care Team Providers Care Wet Pan Operator Name Role Phone Unavailable Primary Care [...] Description 12/25/2024 1:30 PM CDT Office Visit [facility] Oncology and Hematology - [place] [address] [facility] [address] [address] Alfredo Landers MD [address] [facility] [address] [place] [address] Health Maintenance Due Date Last Done Comments DTAP/TDAP/TD VACCINES (1 - Tdap) 11/15/1962 PNEUMOCOCCAL VACCINE 50+ YEARS (1 of 1 - PCV) 11/15/18 94 ZOSTER VACCINE (1 of 2) 11/15/1993 OSTEOPOROSIS SCREENING 11/15/2008 RSV VACCINE (60+ or ) (1 - 1-dose 75+ series) 11/15/2018 Medicare Advantage (NE) Prev entative Visit/Annual Wellness Visit 04/09/2024 INFLUENZA VACCINE (#1) 2024 Insurance [facility]
--- OUTSIDE RECORDS SUMMARY | 2024-12-22 18:37 | XMS_ITS | Encounter Summary ---
Author Organization [facility] Address [address] [place] [address] Care Team Providers Care Director Of Intercollegiate Athletics Name Role Phone Pelon Raman MD, Jack Mir Primary Care Provider Anne Xiao DO Primary Care Provider + Adriane Finn Primary Care Provider [phone]- [phone] Encounter Details Date Type Department Care Team (Late st Contact Info) Description 09/26/2019 Telephone [facility] Neuro Diagnostics [address] [place] [address] Anne Busch [place] Social History Tobacco Use Types Packs/Day Years Used Date Smoking Tobacco: Never Comments Unknown Sex and Gender Information Value Date Recorded Sex Assigned at Not on file Legal Sex Female 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 Gender Identity Not on file Sexual Orientation Not on file documented as of this encounter Plan of Treatment Not on file documented as of this encounter Visit Diagnoses Not on filedocumented in this encounter Care Teams Director Of Intercollegiate Athletics Relationship Specialty Start Date End Date Jack Bird Jr., MD [address] [place] [address] PCP - General Geriatric Medicine 04/30/19 10/28/20 Anne Xiao DO [address] [place] [address] PCP - General Family Medicine 10/29/20 07/05/22 Adriane Finn PA [address] [place] [address] PCP - General Physician Pomologist 07/06/22 documented as of this encounter
--- OUTSIDE RECORDS SUMMARY | 2024-12-22 18:37 | XMS_ITS | Clinical Summary ---
Author Organization [facility] Address [address] [facility] [place] [address] Care Team Providers Care Cantilever Crane Operator Name Role Phone Adriane Finn Primary Care Provider +1- [phone] Allergies Active Allergy Reactions Criticality Noted Date Comments Latex Rash Medium 09/22/2018 Medications simvastatin (ZOCOR) 40 mg tablet Take 40 mg by mouth nightly Active famotidine (PEPCID) 40 mg tablet Take 40 mg by mouth daily Active levothyroxine sodium (TIROSINT) 112 mcg capsule Take 112 mcg by mouth sr. 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 Gender Identity Not on file Sexual Orientation [...] on file Medical Devices Implanted Type Area White Shoe Examiner Device Identifier Shelf Expiration Date Model / Serial / Lot Cochlear L8 SmartLights [id number] Implant Cochlear Cochlear Nucleus Profile Plus Slim Modiolar Electrode Ci632 - [id number] - [id number] Implanted:Qty : 1 on 10/02/2019 by Rene Cruz MD at [facility] Right: Cochlea [employer]chle[employer] [id number] 05/21/2021 [id number] / [id number] / Cochlear [employer] Dualn7 Nucleus 7 2 Kit Processor Sound [facility] [id number] - [id number] Implanted:Qty : 1 on 10/02/2019 by Rene Cruz MD at [facility] Right: Cochlea [employer]chlear [employer] [id number] / / Insurance [employer] MEDICARE HMO [facility] MDCR HMO REF [facility] MEDICARE Address: [address] [address] [place] [address] [employer] CHOICE MEDICARE PPO Care Teams Cantilever Crane Operator Relationship Specialty Start Date End Date Adriane Finn PA [address] [place] [id number] PCP - General Physician Central Sterilization Technician 07/06/22
--- OUTSIDE RECORDS SUMMARY | 2024-12-22 18:37 | XMS_ITS | Encounter Summary ---
Author Organization [facility] Address [facility] [place] [address] Care Team Providers Care Chronometer Adjuster Name Role Phone Jack Bird MD Primary Care Provider Unava ilable Anne Xiao DO Primary Care Provider [phone] Sang Galindo MD Primary Care Provider + [phone] Merlene Schreiber OFFICE CLERK ASSISTANT Primary Care Provider [phone] Kecia Rader DO Primary Care Provider [phone]- [phone] Encounter Details Date Type Department Care Team (Late st Contact Info) Description 09/14/2018 Abstract [facility] CONVERSION [address] [place] [address] , Generic Conversion, Social History Tobacco Use Types Packs/Day Years Used Date Smoking Tobacco: Never Assessed Comments Unknown Sex and Gender Information Value Date Recorded Sex Assigned at Female 05/23/2024 7:46 PM ACCOUNT SERVICES COORDINATOR Legal Sex Female 6:09 PM CDT Gender Identity Female 05/23/2024 7:47 PM ACCOUNT SERVICES COORDINATOR Sexual Orientation Straight 05/23/2024 7: 47 PM ACCOUNT SERVICES COORDINATOR documented as of this encounter Plan of Treatment Not on file documented as of this encounter Visit Diagnoses Not on filedocumented in this encounter Care Teams Chronometer Adjuster Relationship Specialty Start Date End Date Jack Bird MD PCP - General INTERNAL MEDICINE 09/16/18 09/02/21 Anne Xiao DO PCP - General FAMILY PRACTICE 09/03/21 05/24/22 Sang Galindo MD [address] [place] [address] PCP - General FAMILY PRACTICE 05/25/22 11/19/23 [place] [address] [address] PCP - General Nurse Practitioner Family 11/20/2305/10 Kecia Rader DO [address] [place] [address] PCP - General FAMILY PRACTICE 05/23/24 documented as of this encounter
--- OUTSIDE RECORDS SUMMARY | 2024-12-22 18:37 | XMS_ITS | Clinical Summary ---
Author Organization [facility] Address [address] [place] [address] Care Team Providers Care Longshore Equipment Operator Name Role Phone Kecia Rader DO Primary Care Provider [phone] Allergies Active Allergy Reactions Criticality Noted Date [...] Sex Assigned at Female 05/23/2024 7:46 PM TOYS INSPECTOR Legal Sex Female 6:09 PM CDT Gender Identity Female 05/23/2024 7:47 PM TOYS INSPECTOR Sexual Orientation Straight 05/23/2024 7: 47 PM TOYS INSPECTOR Last Filed Vital Signs Vital Sign Reading Time Taken Comments Blood Pressure 134/97 05/23/2024 9:14 PM TOYS INSPECTOR Pulse 80 05/23/2024 9:14 PM TOYS INSPECTOR Temperature 36.3 C (97.4 F) 05/23/2024 9:14 PM TOYS INSPECTOR Respiratory Rate 18 05/23/2024 9:14 PM TOYS INSPECTOR Oxygen Saturation 96% 05/23/2024 9:14 PM TOYS INSPECTOR Inhaled Oxygen Concentration - - Weight 55.3 kg (122 lb) 05/23/2024 7:40 PM TOYS INSPECTOR Height 149.9 cm (4' 11) 05/23/2024 7:40 PM TOYS INSPECTOR Body Mass Index 24.64 05/23/2024 7:40 PM TOYS INSPECTOR Plan of Treatment Health Maintenance Due Date Last Done Comments DTaP, Tdap and Td Vaccines (1 - Tdap) 11/15/1962 Annual Medicare Wellness Visit 11/15/2008 PHQ-2 (Physician [place]) 04/09/2024 11/26/2023 COVID-19 Vaccine ( season) 2024 12/30/2021, 01/25/2021, 06/27/2020, Additional history exists Pneumococcal Vaccine: 50+ Years Completed 11/04/2019, 12/29/2014, [...] BONE DENSITY/DEXA Routine 03/08/2023 3:0 3 PM TOYS INSPECTOR Other primary ovarian failure from Last 3 Months or Most Recently Relevant to Health Maintenance Results * BONE DENSITY/DEXA (03/08/2023 3:03 PM TOYS INSPECTOR) Anatomical Region Laterality Modality Bone Bone Density 03/08/2023 11:0 0 PM TOYS INSPECTOR Impressions 03/08/2023 11:02 PM TOYS INSPECTOR IMPRESSION: WHO Classification: osteopenia. FRAX: 6.5% chance of hip fracture and 20% chance of major osteoporotic fracture over the next 10 years. Referred By: ADRIANE CARIAS Interpreted By: Porfirio Robles MD, 03/08/2023 11:00 PM Narrative 03/08/2023 11:02 PM TOYS INSPECTOR Examination: Bone Density Axial Exam Date/Time: 03/08/2023 [...] to Health Maintenance Insurance HU[employer]NA Care Teams Longshore Equipment Operator Relationship Specialty Start Date End Date Kecia Rader DO [facility] [place] [address] PCP - General FAMILY PRACTICE 05/23/24
--- OUTSIDE RECORDS SUMMARY | 2024-12-22 18:37 | XMS_ITS | Clinical Summary ---
Author Organization [facility] Address [address] [address] Phone Care Team Providers Care Coding Manager Name Role Phone Sang Galindo Primary Care Provider [phone] Allergies Active Allergy Reactions Criticality Noted Date [...] on file Legal Sex Female 7:31 AM [facility] Gender Identity Not on file Sexual Orientation Not on file Last Filed Vital Signs Vital Sign Reading Time Taken Comments Blood Pressure 118/80 03/27/2022 1:20 PM CERTIFIED FINANCIAL PLANNER Pulse 72 03/27/2022 1:20 PM CERTIFIED FINANCIAL PLANNER Temperature 35.6 C (96 F) 03/27/2022 1:20 PM CERTIFIED FINANCIAL PLANNER Respiratory Rate - - Oxygen Saturation - - Inhaled Oxygen Concentration - - Weight 61.7 kg (136 lb) 03/27/2022 1:20 PM CERTIFIED FINANCIAL PLANNER Height 157.5 cm (5' 2) 03/27/2022 1:20 PM CERTIFIED FINANCIAL PLANNER Body Mass Index 24.87 03/27/2022 1:20 PM CERTIFIED FINANCIAL PLANNER Plan of Treatment Health Maintenance Due Date Last Done Comments Pneumococcal PPSV23/PCV13 65 + Years / Low and Medium Risk (2 of 3 - PCV) 11/03/2020 11/04/2019 Influenza Vaccine (#1) 2024 12/22/2021 Insurance [employer] Care Teams Coding Manager Relationship Specialty Start Date End Date Sang Galindo PCP - General Family Medicine 03/27/22
[2024-12-22 18:50] LABS: Add Urine Microscopic? YES; Appearance Urine Cloudy (Clear); Glucose Urine UA 2+ mg/dL (Negative); Leukocyte Esterase Ur 3+ LEU/UL (Negative); Nitrate Urine Negative (Negative); Specific Grav Ur 1.014 (1.001-1.035)
== END 2024-12-22 15:57 | disposition home or self-care (01) ==
LOC: ANHGOSHLAB 15:57
PROVIDERS: PCP Family Medicine; Visit Provider Family Medicine
DX: R30.0 Dysuria (principal)
CPT/HCPCS: 81001

== ENCOUNTER 2024-12-25 14:30 | Outpatient (CLI) | payer MEDICARE, SELFPAY ==
--- OUTSIDE RECORDS SUMMARY | 2006-12-13 09:17 | XMS_ITS | Continuity of Care Document ---
Author Organization [facility] Address [address] [place] [address] [place] [address] Phone Care Team Providers Care Uniform Designer Name Role Phone Norman Zeng Unavailable Unavailable Procedures Procedure Date Office Consultation Advance Directives Directive Yes / No Effective Date File Name No Information Encounters Encounter Description Practice Location Reason(s) For Visit Diagnoses Date Provider Providers Copied on Encounter Office Consultation Located within [facility], [address], [place], [place], [id number], [place] tel:[phone] [facility] No Information 6-[address]ucena Austin. [address] [place], [place], [facility], [place]. tel:[phone] Referring Provider: Rigoberto Lincoln, [address] [facility] [address], [place], [place], [facility]. tel:[phone] Family History Family Member Type Diagnosis Age At Onset No Information Payers Payer name Insurance type Covered green party ID Authoriza tion(s) No Information Social [...]
--- OUTSIDE RECORDS SUMMARY | 2024-12-25 13:30 | XMS_ITS | Encounter Summary ---
Author Organization [facility] SYEDA Bellamy [facility] Address [address] [place] [address] Care Team Providers Care Food And Drink Factory Workers Name Role Phone Unavailable Primary Care Provider Unavailabl e Reason for Referral * Radiology Services (Routine) - Authorized Specialty Diagnoses / Procedures Referred By Contac t Referred To Contact Diagnoses Other secondary thrombocytopenia Procedures US ABDOMEN COMPLETE Alfredo Landers MD [facility] [address] [place] [address] Phone: tel: fax: Referral ID Status Reason Start Date Expiration Date Visits Requested Visits Authorized [id number] Authorized CRS to Schedule 12/25/2024 01/25/2026 1 1 Encounter Details Date Type Department Care Team (Late st Contact Info) Description 12/25/2024 1:30 PM CDT Office Visit [facility] Oncology and Hematology - [place] [address] [place] [address] [address] [place] [address] Alfredo Landers MD [address] [place] [address] [place] [address] Chronic anemia (Primary Dx); Other secondary thrombocytopenia Social History Tobacco Use Types Packs/Day Years Used Date Smoking Tobacco: Never Smokeless Tobacco: Never Alcohol Use Standard Drinks/Week Comments Never 0 (1 standard drink = 0.6 oz pur e alcohol) Comments Unknown Sex and Gender Information Value Date Recorded Sex Assigned at Not on file Legal Sex Female 2:07 PM CDT Gender Identity Not on file Sexual Orientation Not on file documented as of this encounter Last Filed Vital Signs Vital Sign Reading Time Taken Comments Blood Pressure 132/87 12/25/2024 1:31 PM CDT Pulse 103 12/25/2024 1:31 PM CDT Temperature 36.4 C (97.6 F) 12/25/2024 1:31 PM CDT Respiratory Rate 16 12/25/2024 1:31 PM CDT Oxygen Saturation 93% 12/25/2024 1:31 PM CDT Inhaled Oxygen Concentration - - Weight 60 kg (132 lb 3.2 oz) 12/25/2024 1:31 PM CDT Height 149.9 cm (4' 11) 12/25/2024 1:31 PM CDT Body Mass Index 26.7 12/25/2024 1:31 PM CDT documented in this encounter Plan of Treatment Upcoming Encounters Date Type Department Care Team (Late st Contact Info) Description 01/13/2025 4:30 PM CDT Telephone Check Up [facility] Oncology and Hematology - Bobby [address] [facility] [address] [place] [address] Alfredo Landers MD [address] [facility] [address] [place] [address] Scheduled Orders Name Type Priority Associated Diagnoses Orde r Schedule CBC WITH DIFFERENTIAL Lab Stat Chronic anemia Expected: 12/25/2024, Expires: 12/25/2025 COMPREHENSIVE METABOLIC PANEL Lab Stat Chronic anemia Expected: 12/25/2024, Expires: 12/25/2025 FERRITIN Lab Routine Chronic anemia Expected: 12/25/2024, Expires: 12/25/2025 IRON, TIBC, AND PERCENT SATURATION Lab Routine Chronic anemia Expected: 12/25/2024, Expires: 12/25/2025 VITAMIN B12 AND FOLATE Lab Routine Chronic anemia Expected: 12/25/2024, Expires: 12/25/2025 METHYLMALONIC ACID Lab Routine Chronic anemia Expected: 12/25/2024, Expires: 12/25/2025 TRANSFERRIN RECEPTOR TFR SOLUBLE Lab Routine Chronic anemia Expected: 12/25/2024, Expires: 12/25/2025 US ABDOMEN COMPLETE Imaging Routine Other secondary thrombocytopenia 1 Occurrences starting 12/25/2024 until 12/25/2025 MISCELLANEOUS LAB TEST Lab Routine Other secondary thrombocytopenia Expected: 12/25/2024, Expires: 12/25/2025 documented as of this encounter Visit Diagnoses Diagnosis Chronic anemia- Primary Anemia, unspecified Other secondary thrombocytopenia documented in this encounter
--- OUTSIDE RECORDS SUMMARY | 2024-12-25 14:33 | XMS_ITS | Clinical Summary ---
Author Organization [facility] Address [address] [place] [address] Care Team Providers Care Heel Seat Sander Name Role Phone Kecia Rader DO Primary Care Provider [phone] Allergies Active Allergy Reactions Criticality Noted Date [...] Sex Assigned at Female 05/23/2024 7:46 PM BARK PEELER Legal Sex Female 6:09 PM CDT Gender Identity Female 05/23/2024 7:47 PM BARK PEELER Sexual Orientation Straight 05/23/2024 7: 47 PM BARK PEELER Last Filed Vital Signs Vital Sign Reading Time Taken Comments Blood Pressure 134/97 05/23/2024 9:14 PM BARK PEELER Pulse 80 05/23/2024 9:14 PM BARK PEELER Temperature 36.3 C (97.4 F) 05/23/2024 9:14 PM BARK PEELER Respiratory Rate 18 05/23/2024 9:14 PM BARK PEELER Oxygen Saturation 96% 05/23/2024 9:14 PM BARK PEELER Inhaled Oxygen Concentration - - Weight 55.3 kg (122 lb) 05/23/2024 7:40 PM BARK PEELER Height 149.9 cm (4' 11) 05/23/2024 7:40 PM BARK PEELER Body Mass Index 24.64 05/23/2024 7:40 PM BARK PEELER Plan of Treatment Health Maintenance Due Date Last Done Comments DTaP, Tdap and Td Vaccines (1 - Tdap) 11/15/1962 Annual Medicare Wellness Visit 11/15/2008 PHQ-2 (Physician [place]) 04/09/2024 11/26/2023 COVID-19 Vaccine ( season) 2024 [...] BONE DENSITY/DEXA Routine 03/08/2023 3:0 3 PM BARK PEELER Other primary ovarian failure from Last 3 Months or Most Recently Relevant to Health Maintenance Results * BONE DENSITY/DEXA (03/08/2023 3:03 PM BARK PEELER) Anatomical Region Laterality Modality Bone Bone Density 03/08/2023 11:0 0 PM BARK PEELER Impressions 03/08/2023 11:02 PM BARK PEELER IMPRESSION: WHO Classification: osteopenia. FRAX: 6.5% chance of hip fracture and 20% chance of major osteoporotic fracture over the next 10 years. Referred By: ADRIANE CARIAS Interpreted By: Porfirio Robles MD, 03/08/2023 11:00 PM Narrative 03/08/2023 11:02 PM BARK PEELER Examination: Bone Density Axial Exam Date/Time: 03/08/2023 [...] to Health Maintenance Insurance HU[employer] Care Teams Heel Seat Sander Relationship Specialty Start Date End Date Kecia Rader DO [facility] [place] [address] PCP - General FAMILY PRACTICE 05/23/24
--- OUTSIDE RECORDS SUMMARY | 2024-12-25 14:33 | XMS_ITS | Encounter Summary ---
Author Organization [facility] Address [facility] [place] [address] Care Team Providers Care Racing Car Driver Name Role Phone Jack Bird MD Primary Care Provider Unava ilable Anne Xiao DO Primary Care Provider [phone] Sang Galindo MD Primary Care Provider + [phone] Merlene Schreiber FLIGHT PARAMEDIC Primary Care Provider [phone] Kecia Rader DO Primary Care Provider [phone] Encounter Details Date Type Department Care Team (Late st Contact Info) Description 09/14/2018 Abstract [facility] CONVERSION [address] [place] [address] , Generic Conversion, Social History Tobacco Use Types Packs/Day Years Used Date Smoking Tobacco: Never Assessed Comments Unknown Sex and Gender Information Value Date Recorded Sex Assigned at Female 05/23/2024 7:46 PM BUFFER COPPER Legal Sex Female 6:09 PM CDT Gender Identity Female 05/23/2024 7:47 PM BUFFER COPPER Sexual Orientation Straight 05/23/2024 7: 47 PM BUFFER COPPER documented as of this encounter Plan of Treatment Not on file documented as of this encounter Visit Diagnoses Not on filedocumented in this encounter Care Teams Racing Car Driver Relationship Specialty Start Date End Date Jack Bird MD PCP - General INTERNAL MEDICINE 09/16/18 09/02/21 Anne Xiao DO PCP - General FAMILY PRACTICE 09/03/21 05/24/22 Sang Galindo MD [address] [place] [address] PCP - General FAMILY PRACTICE 05/25/22 11/19/23 [place] [address] [address] PCP - General Nurse Practitioner Family 11/20/2305/10 Kecia Rader DO [address] [place] [address] PCP - General FAMILY PRACTICE 05/23/24 documented as of this encounter
--- OUTSIDE RECORDS SUMMARY | 2024-12-25 14:33 | XMS_ITS | Clinical Summary ---
Author Organization [facility] Address [address], [place] [address] Phone Care Team Providers Care Dairy Equipment Installer Name Role Phone Sang Galindo Primary Care Provider [phone] Allergies Active Allergy Reactions Criticality Noted Date [...] on file Legal Sex Female 7:31 AM [facility] Gender Identity Not on file Sexual Orientation Not on file Last Filed Vital Signs Vital Sign Reading Time Taken Comments Blood Pressure 118/80 03/27/2022 1:20 PM POCKET CREASER Pulse 72 03/27/2022 1:20 PM POCKET CREASER Temperature 35.6 C (96 F) 03/27/2022 1:20 PM POCKET CREASER Respiratory Rate - - Oxygen Saturation - - Inhaled Oxygen Concentration - - Weight 61.7 kg (136 lb) 03/27/2022 1:20 PM POCKET CREASER Height 157.5 cm (5' 2) 03/27/2022 1:20 PM POCKET CREASER Body Mass Index 24.87 03/27/2022 1:20 PM POCKET CREASER Plan of Treatment Health Maintenance Due Date Last Done Comments Pneumococcal PPSV23/PCV13 65 + Years / Low and Medium Risk (2 of 3 - PCV) 11/03/2020 11/04/2019 Influenza Vaccine (#1) 2024 12/22/2021 [place] [address] Care Teams Dairy Equipment Installer Relationship Specialty Start Date End Date Sang Galindo PCP - General Family Medicine 03/27/22
--- OUTSIDE RECORDS SUMMARY | 2024-12-25 14:33 | XMS_ITS | Encounter Summary ---
Author Organization [facility] Address [address] [place] [address] Care Team Providers Care Steam Crane Operator Name Role Phone Pelon Raman MD, Jack Mir Primary Care Provider Anne Xiao DO Primary Care Provider + Adriane Finn Primary Care Provider [phone] Encounter Details Date Type Department Care Team (Late st Contact Info) Description 09/26/2019 Telephone [facility] Neuro Diagnostics [address] [place] [address] Anne Busch [place] Social History Tobacco Use Types Packs/Day Years Used Date Smoking Tobacco: Never Comments Unknown Sex and Gender Information Value Date Recorded Sex Assigned at Not on file Legal Sex Female 2:45 AM SEPARATING MACHINE OPERATOR Gender Identity Not on file Sexual Orientation Not on file documented as of this encounter Plan of Treatment Not on file documented as of this encounter Visit Diagnoses Not on filedocumented in this encounter Care Teams Steam Crane Operator Relationship Specialty Start Date End Date Jack Bird Jr., MD [address] [place] [address] PCP - General Geriatric Medicine 04/30/19 10/28/20 Anne Xiao DO [address] [place] [address] PCP - General Family Medicine 10/29/20 07/05/22 Adriane Finn PA [address] [place] [id number] PCP - General Physician Loss Prevention Leader 07/06/22 documented as of this encounter
--- OUTSIDE RECORDS SUMMARY | 2024-12-25 14:33 | XMS_ITS | Clinical Summary ---
Author Organization [facility] John aragon Yusra Address [address] [place] [address] Care Team Providers Care Risk And Insurance Manager Name Role Phone Unavailable Primary Care Provider Unavailabl e Allergies Active Allergy Reactions Criticality Noted Date Comments Latex Rash Medium 09/22/2018 Sulfa (Sulfonamide Antibiotics) Rash Low 08/08 Medications acetaminophen (TylenoL) 325 mg Capsule Take by mouth. Active aspirin (CODY) 325 mg tablet Take 325 mg by mouth daily. Active dapagliflozin propanediol (Farxiga) 5 mg Tablet Take 5 mg by mouth daily. 03/17/2022 Active escitalopram oxalate (LEXAPRO) 20 mg tablet Take 20 mg by mouth daily. 11/17/2024 Active levothyroxine 100 mcg tablet 100 mcg daily in the morning. 06/12/2024 Active losartan (COZAAR) 50 mg tablet Take 50 mg by mouth. 11/28/2023 Active omeprazole (PriLOSEC) 40 mg Capsule, Delayed Release(E.C.) Take 40 mg by mouth daily. 04/26/2023 Active simvastatin (ZOCOR) 40 mg tablet Take 40 mg by mouth daily. Active Active Problems No known active problems Encounters Date Type Department Care Team Description 12/25/2024 1:30 PM CDT Office Visit [facility] Oncology and Hematology - [address] [place] [address] Alfredo Landers MD Chronic anemia (Primary Dx); Other secondary thrombocytopenia from Last 3 Months Family History Medical History Relation Name Comments No Known Problems Brother 1 No Known Problems Brother 2 No Known Problems Child 1 Heart Disease Child 2 Lung Cancer Father Diabetes Mother Heart Disease Mother Heart Disease Sister 1 No Known Problems Sister 2 Relation Name Status Comments Brother 1 Alive Brother 2 Alive Child 1 Alive Child 2 Alive Father Mother Sister 1 Alive Sister 2 Alive Social History Tobacco Use Types Packs/Day Years [...] Mass Index 26.7 12/25/2024 1:31 PM CDT Plan of Treatment Upcoming Encounters Date Type Department Care Team (Late st Contact Info) Description 01/13/2025 4:30 PM CDT Telephone Check Up [facility] Oncology and Hematology - [address] [facility] [address] [place] [address] Alfredo Landers MD [address] [facility] [address] [place] [address] Health Maintenance Due Date Last Done Comments DTAP/TDAP/TD VACCINES (1 - Tdap) 11/15/1962 RSV VACCINE (60+ or ) (1 - 1-dose 75+ series) 11/15/2018 [place] Prev entative Visit/Annual Wellness Visit 04/09/2024 INFLUENZA VACCINE (#1) 2024 3, 12/22/2021, 01/22/2019 OSTEOPOROSIS SCREENING 03/08/2028 3, 03/08/2023, 08/25/2020 PNEUMOCOCCAL VACCINE 50+ YEARS Completed 0 11/04/2019, 12/29/2014, 12/08/2009 ZOSTER VACCINE Completed 03/19/2020, 01/14/2020 [place] [facility] [place] Address: [address] [address]
--- OUTSIDE RECORDS SUMMARY | 2024-12-25 14:33 | XMS_ITS | Encounter Summary ---
Author Organization [facility] Address [facility] [place] [address] Care Team Providers Care Machine Cell Tuber Name Role Phone Merlene Schreiber LIFE TEACHER Primary Care Provider Kecia Rader DO Primary Care Provider [phone] Encounter Details Date Type Department Care Team (Late Contact Info) Description 11/30/2023 Prep for Procedure [facility], [facility] [address] [place], [place] [id number] Bashir Cody MD [facility]. [facility] [address] [place], [place] [id number] Social History Tobacco Use Types Packs/Day Years [...] Sex Assigned at Female 05/23/2024 7:46 PM SENIOR GOVERNMENT PROGRAM ANALYST Legal Sex Female 6:09 PM CDT Gender Identity Female 05/23/2024 7:47 PM SENIOR GOVERNMENT PROGRAM ANALYST Sexual Orientation Straight 05/23/2024 7: 47 PM SENIOR GOVERNMENT PROGRAM ANALYST documented as of this encounter Plan of Treatment Not on file documented as of this encounter Visit Diagnoses Not on filedocumented in this encounter Additional Health Concerns Assessment Noted Time PHQ-9 Depression Total Score: 3 11/26/19 24 3:13 PM CDT documented as of this encounter Care Teams Machine Cell Tuber Relationship Specialty Start [place] [address] [address] PCP - General Nurse Practitioner Family 11/20/2305/10 Kecia Rader DO [address] [place] [address] PCP - General FAMILY PRACTICE 05/23/24 documented as of this encounter
--- OUTSIDE RECORDS SUMMARY | 2024-12-25 14:33 | XMS_ITS | Clinical Summary ---
Author Organization [facility] Address [address] [facility] [address] Care Team Providers Care Body Line Finisher Name Role Phone Adriane Finn Primary Care Provider [phone] Allergies Active Allergy Reactions Criticality Noted Date Comments Latex Rash Medium 09/22/2018 Medications simvastatin (ZOCOR) 40 mg tablet Take 40 mg by mouth nightly Active famotidine (PEPCID) 40 mg tablet Take 40 mg by mouth daily Active levothyroxine sodium (TIROSINT) 112 mcg capsule Take 112 mcg by mouth lottery office manager before breakfast Active alendronate (FOSAMAX) 35 [...] package 1 packet 0 Active HYDROcodone-aceta minophen ([place]) 5-325 mg per tabletIndications :Pain Take 1 [...] on file Legal Sex Female 2:45 AM PLAN NURSE Gender Identity Not on file Sexual Orientation [...] on file Medical Devices Implanted Type Area Account Engineer Device Identifier Shelf Expiration Date Model / Serial / Lot Cochlear [employer] [id number] Implant Cochlear Cochlear Nucleus Profile Plus Slim Modiolar Electrode [id number] - [id number] - [id number] Implanted:Qty : 1 on 10/02/2019 by Rene Cruz MD at [facility] Right: [employer]chle[employer] [id number] 05/21/2021 [id number] / [id number] / [employer]chle[employer] Dualn7 Nucleus 7 2 Kit Processor [facility] [id number] - [id number] Implanted:Qty : 1 on 10/02/2019 by Rene Cruz MD at [facility] Right: Cochlea [employer]chle[employer] [id number] / / Insurance HUMANA MEDICARE HMO [facility] HMO REF HUMANA CHOICE MEDICARE PPO Care Teams Body Line Finisher Relationship Specialty Start Date End Date Adriane Finn PA [address] [place] [address] PCP - General Physician Product Test Engineer 07/06/22
[2024-12-25 14:50] LABS: Hematocrit 37.3 % (37.0-47.0); Hemoglobin 11.8 g/dL (12.0-15.0); Immature Granulocyte Percent A 0.3 % (0-0.5); Lymphocytes Absolute Auto 2.48 K/mm3 (0.9-3.2); Mean Corpuscular HGB Conc 31.6 g/dl (32-36); Mean Corpuscular Hemoglobin 31.5 pg (26-34); Mean Corpuscular Volume 99.5 fl (80-100); Nucleated Red Blood Cells Absolute Auto 0.000 K/mm3 (0.0-0.012); Nucleated Red Blood Cells Perc 0.0 % (0.0-0.2); Platelet Count Result 186 k/mm3 (150-375); Red Blood Count 3.75 M/mm3 (4.2-5.4); White Blood Count 8.8 K/mm3 (4.5-10.0)
[2024-12-25 15:41] LABS: Iron 75 ug/dL (37-170)
[2024-12-25 15:59] LABS: Percent Iron Saturation 22 % (20-50)
[2024-12-25 16:25] LABS: Ferritin 24.80 ng/mL (11.1-264)
[2024-12-25 16:43] LABS: Vitamin B12 798.0 pg/mL (239-931)
== END 2024-12-25 14:31 | disposition home or self-care (01) ==
LOC: ANHLAB 14:31
PROVIDERS: PCP Family Medicine; Visit Provider Internal Medicine Hematology & Oncology
DX: D64.9 Anemia, unspecified (principal); D69.59 Other secondary thrombocytopenia
CPT/HCPCS: 36415; 82607; 82728; 82746; 83540; 83550; 83921; 84238; 85025; 86022

== ENCOUNTER 2025-01-16 13:28 | Outpatient (CLI) | payer MEDICARE, SELFPAY ==
--- NOTE | ~2025-01-16 | DEXA_ITS ---
Bone Density Report Name: NEIL ARTEAGA Age: 79 Sex: Female Ethnicity: White Date of : 1945 Indication: postmenopausal; screening for osteoporosis; history of glucocorticoids; hysterectomy; rheumatoid arthritis; Referring Provider: Collette Velasco Study: Bone densitometry was performed. Exam Date: January 16, 2025 Accession number: [id number] Bone Density: Region BMD T-score Z-score Classification AP Spine(L1-L4) 1.201 1.4 4.1 Normal Femoral Neck (Left) 0.581 -2.4 -0.1 Osteopenia Total Hip (Left) 0.677 -2.2 0.0 Osteopenia Femoral Neck (Right) 0.543 -2.8 -0.4 Osteoporosis Total Hip (Right) 0.657 -2.3 -0.2 Osteopenia Total Hip Mean 0.667 -2.3 -0.1 Osteopenia World Health Organization criteria for BMD impression classify patients as: Normal (T-score at or above -1.0), Osteopenia (T-score between -1.0 and -2.5), or Osteoporosis (T-score at or below -2.5). 10-year Fracture Risk: FRAX not reported because: Some T-score for Spine Total or Hip Total or Femoral Neck at or below -2.5 Clinical Information Provided by Patient: Has taken Glucocorticoids Has rheumatoid arthritis Has used the following medications: Fosamax (i.e. alendronate) Has the following medical conditions: Hysterectomy Patient maximum height was 61.5 Menopause Age: 33 No regular weight bearing exercise Does not regularly consume dairy products Onset of menses at age 10 Number of children 2 Impression: The patient has osteoporosis, based on the Right Femoral Neck T-score. The patient has risk factors, including: history of glucocorticoid therapy. Discussion: INCREASED RISK OF FRACTURE. BONE DENSITY IS UNDESIRABLY LOW AT ONE OR MORE SKELETAL SITES, CONSISTENT WITH POSTMENOPAUSAL OSTEOPOROSIS. This patient's lowest T-score meets the World Health Organization's (WHO) criteria for osteoporosis at one or more sites (T-score -2.5 or below). In untreated patients, the risk of osteoporotic fracture increases approximately two-fold for each 1.0 SD decrease in T-score. Low bone density is not the only risk factor for fracture; also consider factors such as patient's age, frailty or poor health, risk of falling, risk of injury, previous osteoporotic fracture, family history of osteoporosis, cigarette smoking, low body weight, etc. Not everyone with low bone mineral density has osteoporosis; osteomalacia and other metabolic bone disorders should also be considered. Patients who have osteoporosis should be evaluated for specific diseases and conditions (secondary causes) that may cause or contribute to bone loss. The [place] Association of Clinical Endocrinologists (AACE) and National Osteoporosis Foundation (NOF) recommend pharmacologic intervention for all postmenopausal women whose T-score is in this range. The patient should follow a healthful lifestyle (good nutrition with adequate calcium and vitamin D, and appropriate weight-bearing exercise). Follow-Up: Consider a repeat BMD and Vertebral Fracture Assessment (VFA) exam in 2 years or sooner if medically necessary, to reassess this patient's status. Reported by: LUCIA on 01/16/2025 2:07:00 PM. Reviewed, dictated and finalized at location A.
== END 2025-01-16 13:29 | disposition home or self-care (01) ==
LOC: MICIMG 13:29
PROVIDERS: PCP Nurse Practitioner; Visit Provider Nurse Practitioner
DX: Z78.0 Asymptomatic menopausal state (principal); M85.852 Other specified disorders of bone density and structure, left thigh; M85.851 Other specified disorders of bone density and structure, right thigh; M81.0 Age-related osteoporosis without current pathological fracture
CPT/HCPCS: 77080